=== PATIENT | male | born 1940 | race Caucasian/White ===

== ENCOUNTER 2019-02-16 21:03 | Inpatient (IN) ==
--- NOTE | 2019-02-16 21:09 | Emergency Department Note ---
Disposition Clinical Impression: Atrial fibrillation with rapid ventricular response Congestive heart failure Qualifiers: Heart failure type: unspecified Heart failure chronicity: chronic Qualified Code(s): I50.9 - Heart failure, unspecified Disposition: Admitted As Inpatient Condition: Fair Time of Disposition: 23:51 Chest Pain HPI - General Stated Complaint: Chest Pain PATRICIA Time Seen by Provider: 02/16/19 21:06 Source: patient, EMS Mode of arrival: EMS Limitations: no limitations Vital Signs Reviewed: Yes Nursing Notes Reviewed: Yes - History of Present Illness HPI Narrative: 79-year-old gentleman with history of coronary artery disease (with short of breath which he states is chronic), and a twinge of chest pain. He states he was laying down to take a nap onto his right side and felt a pain in his right shoulder and arm that went across his chest and then down his left arm. This occurred approximately 1 hour prior to arrival. He states he does not history coronary disease with stent placement in the past. He loses had a heart attack in the past as well. No history of atrial fibrillation OR arrhythmias. Pt complaint: chest pain Onset (ago): hour(s) (1) Duration: now resolved Severity: none Severity scale (1-10): 0 Pain Radiation: none Improves with: other (Resolved spontaneously) Worsens with: nothing Associated symptoms: Denies: vomiting, diaphoresis, dyspnea, fever, cough - Related Data On Oral Contraceptives: No Home Medications Medication Instructions Recorded Confirmed Atorvastatin Calcium [Lipitor] 80 mg PO DAILY 06/28/16 02/16/19 Budesonide/Formoterol 160/4.5 2 puff IH BID 06/28/16 02/16/19 [Symbicort 160/4.5] Carbidopa/Levodopa 25/100 [Sinemet 1 tab PO DAILY 06/28/16 02/16/19 25/100] Glucosamine Sulfate Dipot Chlr 1,000 mg PO DAILY 06/28/16 02/16/19 [Glucosamine] HYDROcodone/Acet 5/325 mg [[place] 1 tab PO TID 06/28/16 02/16/19 5-325 mg] MOM Conc [MILK OF MAGNESIA conc] 10 ml PO DAILY 06/28/16 02/16/19 Metformin HCl [Glucophage] 1,000 mg PO BID 06/28/16 02/16/19 Metoprolol [Lopressor] 25 mg PO BID 06/28/16 02/16/19 Nortriptyline HCl 150 mg PO HS 06/28/16 02/16/19 Sertraline [Zoloft] 150 mg PO DAILY 06/28/16 02/16/19 diazePAM [Valium] 5 mg PO BID 06/28/16 02/16/19 Albuterol Sulfate [Proventil 2 puff IH Q6H PRN 08/05/18 02/16/19 Inhaler] Furosemide [Lasix] 20 mg PO DAILY 08/05/18 02/16/19 GlipiZIDE [Glucotrol] 5 mg PO DAILY 08/05/18 02/16/19 Levothyroxine Sodium [Euthyrox] 100 mcg PO DAILY 08/05/18 02/16/19 Nitroglycerin [Nitrostat] 0.4 mg SL Q5M PRN 08/05/18 02/16/19 Omeprazole [PriLOSEC] 40 mg PO DAILY 08/05/18 02/16/19 Tamsulosin [Flomax] 0.4 mg PO DAILY 08/05/18 02/16/19 Clopidogrel [Plavix] 75 mg DAILY 08/27/18 02/16/19 Midodrine HCl 2.5 mg TID 08/27/18 02/16/19 Symbicort 160/4.5 4.5 mcg IN BID 08/27/18 02/16/19 Oxygen 2 l IN CONT 02/16/19 02/16/19 risperiDONE [Risperdal] 2 mg PO BID 02/16/19 02/16/19 Allergies Allergy/AdvReac Type Severity Reaction Status Date / Time red dye Allergy Rash Verified 02/16/19 23:12 iodine AdvReac Rash Verified 02/16/19 23:12 NSAIDS (Non-Steroidal AdvReac See Verified 02/16/19 23:12 Anti-Inflamma Comments rofecoxib [From Vioxx] AdvReac See Verified 02/16/19 23:12 Comments rosuvastatin [From Crestor] AdvReac See Verified 02/16/19 23:12 Comments tramadol AdvReac Fainting Verified 02/16/19 23:12 All systems ED: reviewed and negative except as stated. Constitutional: Denies: fever, chills, weakness, weight change Eyes: Denies: eye pain, eye discharge, vision change ENT ED: Denies: ear pain, throat pain, dental pain, hearing loss, epistaxis, congestion, dysphagia Cardiovascular: Reports: chest pain, palpitations. Denies: dyspnea on exertion, edema, syncope Respiratory: Reports: dyspnea (Chronic, history of previous smoker, but states he has had shortness breath almost all his life). Denies: cough, wheezes, hemoptysis, stridor Gastrointestinal: Denies: abdominal pain, nausea, vomiting, diarrhea, constipation, hematemesis, melena, hematochezia Genitourinary: Denies: urgency, dysuria, frequency, hematuria Musculoskeletal: Denies: back pain, neck pain, arthralgia, myalgia Integumentary: Denies: rash, abrasion, lesions Neurological: Denies: headache, weakness, numbness, paresthesias, confusion, abnormal gait, vertigo Psychiatric: Denies: anxiety, depression, suicidal thoughts, homicidal thoughts, auditory hallucinations, visual hallucinations Endocrine: Denies: fatigue, heat or cold intolerance, polydipsia Hematological/Lymphatic: Denies: easy bleeding, easy bruising, lymphadenopathy Chest Pain PMH - Past Medical History Medical history: Reports: arthritis, COPD, coronary artery disease, diabetes, hypertension, thyroid disease, other Surgical history: Reports: knee replacement, vasectomy Psychiatric history: Reports: anxiety, depression, schizophrenia Prior Cardiac Testing/Procedures: Stenting (2014), Cardiac Angiogram, CTA Chest/CTA Coronary Angiography - Social History Smoking Status: Former smoker Alcohol use: Reports: none Drug use: Reports: none Physical Exam - General Limitations: no limitations General appearance: alert, in no apparent distress - Head Head exam: atraumatic, normocephalic, normal inspection - ENT ENT exam: normal exam, normal oropharynx, mucous membranes moist - Neck Neck exam: Present: normal inspection, full ROM, trachea midline. Absent: tenderness - Chest Chest inspection: Present: normal inspection, symmetric chest wall rise - Respiratory Respiratory exam: Present: normal lung sounds bilaterally. Absent: respiratory distress - Cardiovascular Cardiovascular exam: Present: regular rate, normal rhythm, normal heart sounds. Absent: bradycardia - Abdominal Exam Abdominal exam: Present: soft, Non-Tender, normal bowel sounds. Absent: tenderness, distention, guarding, rebound, rigidity - Extremities Exam Extremities exam: Present: normal inspection, full ROM, normal capillary refill, pedal edema (2+). Absent: tenderness - Back Exam Back exam: Present: normal inspection, full ROM. Absent: tenderness, CVA ten derness (R), CVA tenderness (L) - Neurological Exam Neurological exam: Present: alert, oriented X3, CN II-XII intact - Psychiatric Psychiatric exam: Present: normal affect, normal mood - Skin Skin exam: Present: warm, intact, normal color, other (Skin is clammy, he states his skin always feels this way and his confirms this.) Course Course Narrative: Patient was placed in examination room. History and physical was obtained. Recent lab work including EKG was obtained. Chest x-ray did demonstrate fluid in the fissure supposition flow and findings consistent with congestive heart failure. Lasix was given IV push. EKG demonstrated atrial fibrillation. Cardizem 15 mg IV was given. His heart rate did improve into the 80s and 90s but still was in atrial fibrillation. Cardizem drip at 5 mg per hour was initiated. Patient denies any chest pain, palpitations or shortness of breath now. He states the chest pain only lasted less than a minute when he was on his right side in bed and was in his right arm across his chest and down his left arm but he stated it seemed to be when he laid down. Furthermore, he states he did have palpitations and felt like his heart was racing which consistent with atrial fibrillation. Initially, I said immediately have had a history of atrial fibrillation but after asking the second time they state he has not Dr. Wood will admit the patient as an observation. - Reevaluation(s) Reevaluation #1: Patient is resting comfortably. Time: 00:25 Vital Signs Temperature 98.3 F 02/16/19 21:03 Pulse Rate 114 02/16/19 21:03 Respiratory Rate 20 02/16/19 21:03 Blood Pressure 126/111 02/16/19 21:03 O2 Sat by Pulse Oximetry 97 02/16/19 21:03 Temperature 98.3 F 02/16/19 21:03 Pulse Rate 90 02/17/19 01:30 Respiratory Rate 20 02/17/19 01:30 Blood Pressure 128/105 02/17/19 01:30 O2 Sat by Pulse Oximetry 93 02/17/19 01:30 Oxygen Delivery Oxygen Delivery Nasal Cannula Chest Pain - Medical Records Medical records reviewed: Yes I reviewed the patient's medical records. - Lab Data Lab results reviewed: Yes I reviewed the patient's lab results. Result diagrams: 02/16/19 23:09 02/16/19 23:09 Lab Results 02/16/19 02/16/19 02/16/19 Range/Units 23:09 23:09 23:09 WBC 6.8 (4.3-11.1) K/mcL RBC 4.53 (4.19-5.50) M/mcL Hgb 11.4 L (12.9-16.9) g/dL Hct 38.3 (37.5-50.1) % MCV 84.5 (83.0-100.0) fL MCH 25.2 L (28.0-33.3) pg MCHC 29.8 L (31.6-35.5) g/dL RDW 15.5 H (11.5-14.5) % Plt Count 203 (140-400) K/mcL MPV 9.1 L (9.4-12.4) fL Immature Gran % 0.6 (0-4) % Seg Neutrophils % 77.0 % Lymphocytes % 13.4 % Monocytes % 6.8 % Eosinophils % 1.8 % Basophils % 0.4 % Neutrophils # 5.2 (1.6-8.9) K/mcL Lymphocytes # 0.9 (0.6-4.6) K/mcL Monocytes # 0.5 (0.0-1.3) K/mcL Eosinophils # 0.1 (0.0-0.6) K/mcL Basophils # 0.0 (0.0-0.2) K/mcL PT 13.0 H (9.4-12.1) Seconds INR 1.1 APTT 39.4 H (26.0-36.0) Seconds Sodium 136 (136-145) mEq/L Potassium 4.0 (3.5-5.1) mEq/L Chloride 99 (98-107) mEq/L Carbon Dioxide 28 (23-29) mEq/L BUN 11 (8-23) mg/dL Creatinine 0.70 (0.70-1.30) mg/dL Est GFR ( Amer) > 60 (> 60) Est GFR (Non-Af Amer) > 60 (> 60) BUN/Creatinine Ratio 16 (6-26) Glucose 122 H (70-105) mg/dL Calculated Osmolality 283 (280-300) Calcium 9.5 (8.6-10.3) mg/dL Total Bilirubin (0.3-1.0) mg/dL Direct Bilirubin (0.0-0.2) mg/dL Indirect Bilirubin (0.0-1.2) mg/dL AST (13-39) Units/L ALT (7-52) Units/L Alkaline Phosphatase (34-104) Units/L Troponin I < 0.03 (< 0.04) ng/mL B-Natriuretic Peptide (Less than 100) pg/mL Serum Total Protein (6.4-8.9) g/dL Albumin (3.5-5.7) g/dL Globulin (2.4-3.5) g/dL Albumin/Globulin Ratio (1.1-2.2) 02/16/19 02/16/19 Range/Units 23:09 23:09 WBC (4.3-11.1) K/mcL RBC (4.19-5.50) M/mcL Hgb (12.9-16.9) g/dL Hct (37.5-50.1) % MCV (83.0-100.0) fL MCH (28.0-33.3) pg MCHC (31.6-35.5) g/dL RDW (11.5-14.5) % Plt Count (140-400) K/mcL MPV (9.4-12.4) fL Immature Gran % (0-4) % Seg Neutrophils % % Lymphocytes % % Monocytes % % Eosinophils % % Basophils % % Neutrophils # (1.6-8.9) K/mcL Lymphocytes # (0.6-4.6) K/mcL Monocytes # (0.0-1.3) K/mcL Eosinophils # (0.0-0.6) K/mcL Basophils # (0.0-0.2) K/mcL PT (9.4-12.1) Seconds INR APTT (26.0-36.0) Seconds Sodium (136-145) mEq/L Potassium (3.5-5.1) mEq/L Chloride (98-107) mEq/L Carbon Dioxide (23-29) mEq/L BUN (8-23) mg/dL Creatinine (0.70-1.30) mg/dL Est GFR ( Amer) (> 60) Est GFR (Non-Af Amer) (> 60) BUN/Creatinine Ratio (6-26) Glucose (70-105) mg/dL Calculated Osmolality (280-300) Calcium (8.6-10.3) mg/dL Total Bilirubin 0.4 (0.3-1.0) mg/dL Direct Bilirubin 0.1 (0.0-0.2) mg/dL Indirect Bilirubin 0.3 (0.0-1.2) mg/dL AST 11 L (13-39) Units/L ALT 6 L (7-52) Units/L Alkaline Phosphatase 63 (34-104) Units/L Troponin I (< 0.04) ng/mL B-Natriuretic Peptide 267 H (Less than 100) pg/mL Serum Total Protein 7.4 (6.4-8.9) g/dL Albumin 3.8 (3.5-5.7) g/dL Globulin 3.6 H (2.4-3.5) g/dL Albumin/Globulin Ratio 1.1 (1.1-2.2) - Radiology Data Radiology results reviewed: Yes I reviewed the patient's radiology results. - EKG Data EKG attestation: Yes I reviewed and interpreted this EKG. EKG results narrative: EKG shows an rate of 110 atrial fibrillation irregular regular, left axis deviation, no acute ST elevations, however, there are minimal ST changes in V2 and V3 which compared to previous EKGs is similar. H a fibrillation appears to be new onset after reviewing previous EKGs and medical history. Heart Score - Score History: Slightly Suspicious EKG: Normal Age: Greater than 65 Risk Factors: Equal/Greater than 3 risk factor or history of atherosclerotic disease Troponin: Less than normal limit HEART Score Total: 4 Critical Care Time Critical Care Time: Yes Total Critical Care Time: 30 Attestation: The high probability of a clinically significant, sudden or life threatening deterioration of the patient's condition required my full and direct attention, intervention and personal management.
[2019-02-16 23:26] LABS: Basophils % 0.4 %; Eosinophils # 0.1 K/mcL (0.0-0.6); Eosinophils % 1.8 %; Hematocrit 38.3 % (37.5-50.1); Hemoglobin 11.4 g/dL (12.9-16.9); Immature Granulocytes % 0.6 % (0-4); Lymphocytes # 0.9 K/mcL (0.6-4.6); Lymphocytes % 13.4 %; Mean Corpuscular HGB Conc 29.8 g/dL (31.6-35.5); Mean Corpuscular Hemoglobin 25.2 pg (28.0-33.3); Mean Corpuscular Volume 84.5 fL (83.0-100.0); Mean Platelet Volume 9.1 fL (9.4-12.4); Monocytes # 0.5 K/mcL (0.0-1.3); Monocytes % 6.8 %; Neutrophils # 5.2 K/mcL (1.6-8.9); Platelet Count 203 K/mcL (140-400); Red Blood Count 4.53 M/mcL (4.19-5.50); Red Cell Distribution Width 15.5 % (11.5-14.5); White Blood Count 6.8 K/mcL (4.3-11.1)
[2019-02-16 23:34] LABS: INR 1.1
[2019-02-16 23:37] LABS: Activated Partial Thrombo Time 39.4 Seconds (26.0-36.0)
[2019-02-16 23:45] LABS: Albumin 3.8 g/dL (3.5-5.7); Albumin/Globulin Ratio 1.1 (1.1-2.2); Bilirubin,Direct 0.1 mg/dL (0.0-0.2); Bilirubin,Indirect 0.3 mg/dL (0.0-1.2); Bilirubin,Total 0.4 mg/dL (0.3-1.0); Globulin 3.6 g/dL (2.4-3.5); Total Protein 7.4 g/dL (6.4-8.9)
[2019-02-16 23:47] LABS: BUN/Creatinine Ratio 16 (6-26); Blood Urea Nitrogen 11 mg/dL (8-23); Calcium 9.5 mg/dL (8.6-10.3); Carbon Dioxide 28 mEq/L (23-29); Chloride 99 mEq/L (98-107); Glucose 122 mg/dL (70-105); Osmolality,Calculated 283 (280-300); Sodium 136 mEq/L (136-145); eGFR For African Americans > 60 (> 60); eGFR For Non-African Americans > 60 (> 60)
[2019-02-16 23:49] LABS: Troponin I < 0.03 ng/mL (< 0.04)
[2019-02-16] MEDS ORDERED: Furosemide 40 MG/4 ML VIAL IVP ONE (23:50)
[2019-02-17] MEDS ORDERED: Naloxone 0.4 MG/ML INJ IVP PRN (04:47)
[2019-02-17] MEDS ORDERED: Dextrose Gel 15 GM/37.5 ML TUBE PO PRN ×2 (04:56)
[2019-02-17] MEDS ORDERED: D5% in Water 1,000 ML IVC PRN (04:56)
[2019-02-17] MEDS ORDERED: *HR* Dextrose 50 % in Water (Syg) 50 ML SYRINGE IVP PRN (04:56)
[2019-02-17] MEDS ORDERED: *HR* Heparin 5,000 UNIT/ML VIAL IVP ONE (04:57)
[2019-02-17] MEDS ORDERED: *HR* Heparin 5,000 UNIT/ML VIAL IVP PRN ×2 (04:57)
[2019-02-17 05:12] LABS: Hematocrit 37.4 % (37.5-50.1); Hemoglobin 11.3 g/dL (12.9-16.9); Mean Corpuscular HGB Conc 30.2 g/dL (31.6-35.5); Mean Corpuscular Hemoglobin 25.3 pg (28.0-33.3); Mean Corpuscular Volume 83.7 fL (83.0-100.0); Platelet Count 217 K/mcL (140-400); Red Blood Count 4.47 M/mcL (4.19-5.50); Red Cell Distribution Width 15.5 % (11.5-14.5)
[2019-02-17 05:46] LABS: BUN/Creatinine Ratio 14 (6-26); Blood Urea Nitrogen 11 mg/dL (8-23); Calcium 9.4 mg/dL (8.6-10.3); Carbon Dioxide 33 mEq/L (23-29); Chloride 98 mEq/L (98-107); Glucose 124 mg/dL (70-105); Osmolality,Calculated 291 (280-300); Potassium 3.5 mEq/L (3.5-5.1); Sodium 140 mEq/L (136-145); eGFR For African Americans > 60 (> 60); eGFR For Non-African Americans > 60 (> 60)
[2019-02-17 06:48] LABS: Heparin anti-factor XA UFH 0.59 IU/mL (0.30-0.70); INR 1.2; Prothrombin Time 13.7 Seconds (9.4-12.1)
[2019-02-17] MEDS: Heparin 25,000 UNIT/250 ML D5W 25,000 UNIT/250 ML IV.SOLN IVC SCH ×2 (06:51→20:00)
--- NOTE | 2019-02-17 07:18 | Internal Med History&Physical ---
Date of Encounter: 02/17/19 Time of Encounter: 04:24 Internal Medicine - H&P: HPI Chief complaint: New-onset atrial fibrillation Admitted From: Emergency Dept Plans for Post Hospital Care: Home History of present illness: Mr. Davis is a 79 year old male Patient presented to the emergency department with brief chest pain that he experienced when he rolled over in bed. He had been laying down on his right side when he turned to lay down on his left side when he experienced a pain in his right arm that spread across his chest and then went into his left arm. The episode was brief, but he was concerned that he may be having a heart attack. 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 He also was experiencing palpitations as well which is not normal for him. He called an ambulance and came to the hospital for further evaluation. Emergency department vital signs: Initial heart rate 114, blood pressure 126/111, respiratory rate 20, oxygen 97% on 2 L. CBC: White count 6.8, hemoglobin 11.4, platelets 203. BMP unremarkable Liver function tests Unremarkable Initial troponin undetectable BNP 267 Chest x-ray showed marked cardiomegaly with suggestive findings of volume overload EKG: Atrial fibrillation, heart rate 110, QTC 458 ms, ST changes in V2 and V3, similar to previous EKG from 08/04/18. In the ER patient was started on a cardizem drip, given 40mg of lasix and admitted to the hospital for further observation. Upon my evaluation, the patient was resting comfortably in the hospital bed in no acute distress. He denies chest pain, abdominal pain, nausea, vomiting, diarrhea and constipation. He also denied shortness of breath. Patient is a full code. He denies history of irregular heart rhythm. Past Med Surg Social Fam HX - Past Medical History Medical history: arthritis, COPD, coronary artery disease, diabetes, hy pertension, thyroid disease, other Additional medical history: hiatal hernia, tremors, cardiac stents 2013 Psychiatric history: anxiety, depression, schizophrenia - Past Surgical History Surgical History: knee replacement, vasectomy Additional surgical history: heart stents; shoulder, back and feet surgery - Social History Smoking Status: Former smoker Smokeless Tobacco Status: No Alcohol use: none Drug use: none - Family History Sister Hx Family Cardiac Disorders: Yes (heart disease) Father Hx Family Cardiac Disorders: Yes (heart disease, [place]) Internal Medicine - H&P: Meds Atorvastatin Calcium [Lipitor] 80 mg PO DAILY 06/28/16 [History] Budesonide/Formoterol 160/4.5 [Symbicort 160/4.5] 2 puff IH BID 06/28/16 [History] Carbidopa/Levodopa 25/100 [Sinemet 25/100] 1 tab PO DAILY 06/28/16 [History] Glucosamine Sulfate Dipot Chlr [Glucosamine] 500 mg PO DAILY 06/28/16 [History] HYDROcodone/Acet 5/325 mg [[place] 5-325 mg] 1 tab PO TID 06/28/16 [History] MOM Conc [MILK OF MAGNESIA conc] 10 ml PO DAILY 06/28/16 [History] Metformin HCl [Glucophage] 1,000 mg PO BID 06/28/16 [History] Metoprolol [Lopressor] 25 mg PO BID 06/28/16 [History] Nortriptyline HCl 150 mg PO HS 06/28/16 [History] Sertraline [Zoloft] 150 mg PO DAILY 06/28/16 [History] diazePAM [Valium] 5 mg PO BID 06/28/16 [History] Albuterol Sulfate [Proventil Inhaler] 2 puff IH Q6H PRN 08/05/18 [History] Furosemide [Lasix] 20 mg PO DAILY 08/05/18 [History] GlipiZIDE [Glucotrol] 5 mg PO DAILY 08/05/18 [History] Levothyroxine Sodium [Euthyrox] 100 mcg PO DAILY 08/05/18 [History] Nitroglycerin [Nitrostat] 0.4 mg SL Q5M PRN 08/05/18 [History] Omeprazole [PriLOSEC] 40 mg PO DAILY 08/05/18 [History] Tamsulosin [Flomax] 0.4 mg PO DAILY 08/05/18 [History] Clopidogrel [Plavix] 75 mg DAILY 08/27/18 [History] Midodrine HCl 2.5 mg TID 08/27/18 [History] Symbicort 160/4.5 4.5 mcg IN BID 08/27/18 [History] Oxygen 2 l IN CONT 02/16/19 [History] risperiDONE [Risperdal] 2 mg PO BID 02/16/19 [History] Cholecalciferol (D-3) [Vitamin D] 1,000 unit PO DAILY 02/17/19 [History] Droxidopa [Northera] 100 mg PO TID 02/17/19 [History] Sertraline 100 mg PO BID 02/17/19 [History] Allergy/AdvReac Type Severity Reaction Status Date / Time red dye Allergy Rash Verified 02/16/19 23:12 iodine AdvReac Rash Verified 02/16/19 23:12 NSAIDS (Non-Steroidal AdvReac See Verified 02/16/19 23:12 Anti-Inflamma Comments rofecoxib [From Vioxx] AdvReac See Verified 02/16/19 23:12 Comments rosuvastatin [From Crestor] AdvReac See Verified 02/16/19 23:12 Comments tramadol AdvReac Fainting Verified 02/16/19 23:12 All Systems PM: A 10-system review of systems was performed and is negative for pertinent find ings except as documented above in the HPI. - Constitutional Vitals: Temp Pulse Resp BP Pulse Ox 98.3 F 116 22 127/106 94 02/16/19 21:03 02/17/19 03:18 02/17/19 03:18 02/17/19 03:18 02/17/19 03:18 General appearance: Present: cooperative, A&O X 3, pleasant, no acute distress, answers questions appropriately Exam: - - Head Head exam: Present: normal inspection - Eye Eye exam: Present: EOMI, normal appearance - Respiratory Respiratory exam: Present: CTAB. Absent: rales, respiratory distress, rhonchi, wheezes - Cardiovascular Cardiovascular exam: Present: irregular rhythm, tachycardia. Absent: diastolic murmur, systolic murmur - GI/Abdominal GI/Abdominal exam: Present: normal bowel sounds, soft. Absent: tenderness - Extremities Exam Extremities exam: Present: warm, radial pulses palpable and symmetrical. Absent: calf tenderness, pedal edema, tenderness - Neurological Exam Neurological exam: Present: no focal deficits, strengths equal and symetr throughout. Absent: motor sensory deficit, facial droop, speech deficit - Skin Skin exam: Present: dry, normal color, warm Internal Med - H&P Results - Labs CBC & Chem 7: 02/17/19 04:58 02/17/19 04:58 Labs: Short CBC 02/16/19 02/17/19 Range/Units 23:09 04:58 WBC 6.8 6.0 (4.3-11.1) K/mcL Hgb 11.4 L 11.3 L (12.9-16.9) g/dL Hct 38.3 37.4 L (37.5-50.1) % Plt Count 203 217 (140-400) K/mcL Neutrophils # 5.2 (1.6-8.9) K/mcL BMP 02/16/19 02/17/19 23:09 04:58 Sodium 136 140 Potassium 4.0 3.5 Chloride 99 98 Carbon Dioxide 28 33 H BUN 11 11 Creatinine 0.70 0.77 Glucose 122 H 124 H Calcium 9.5 9.4 Cardiac Enzymes 02/16/19 02/17/19 Range/Units 23:09 04:58 Troponin I < 0.03 0.03 (< 0.04) ng/mL Liver Function 02/16/19 Range/Units 23:09 Total Bilirubin 0.4 (0.3-1.0) mg/dL Direct Bilirubin 0.1 (0.0-0.2) mg/dL AST 11 L (13-39) Units/L ALT 6 L (7-52) Units/L Alkaline Phosphatase 63 (34-104) Units/L Albumin 3.8 (3.5-5.7) g/dL - Impressions ITS Impressions Chest X-Ray 02/16/19 22:02 IMPRESSION: Marked cardiomegaly with findings suggestive of volume overload. D/ / Talib Wheatley / Talib Wheatley Interpreting Provider: Talib Wheatley - Assessment and Plan (1) Atrial fibrillation with rapid ventricular response Current Visit: Yes Status: Acute Assessment and plan: No previous history, rate improved on Cardizem drip to around mid 90's. Reported rate of 140 for EMS. Cardiac telemetry Start heparin drip for CHADs vasc score of 6 Cardiology consultation Continue to monitor. Echocardiogram today (2) Congestive heart failure Current Visit: Yes Status: Acute Assessment and plan: Patient's chest x-ray showed some volume overload, mild swelling in lower extremities. No crackles on exam. Echocardiogram today Strict I's and O's Daily weights Continue lasix Qualifiers: Heart failure type: unspecified Heart failure chronicity: chronic Qualified Code(s): I50.9 - Heart failure, unspecified (3) Chest pain Current Visit: No Status: Acute Assessment and plan: Brief episode while patient was repositioning in bed, radiated to both arms. No chest pain since. EKG showed atrial fibrillation but no new ST changes. Cardiac telemetry Continue to trend troponin Echocardiogram in the morning Cardiology consultation Qualifiers: Chest pain type: unspecified Qualified Code(s): R07.9 - Chest pain, unspecified (4) Diabetes mellitus Current Visit: No Status: Chronic Assessment and plan: Patient is not an insulin dependent diabetic Monitor sugars Q6H NPO Low dose insulin sliding scale as needed Hold home meds. Qualifiers: Diabetes mellitus type: type 2 Diabetes mellitus senior care insulin use: without termite control service representative use Diabetes mellitus complication status: with hyperglycemia Qualified Code(s): E11.65 - Type 2 diabetes mellitus with hyperglycemia (5) DVT prophylaxis Current Visit: No Status: Acute Assessment and plan: Continue heparin drip - Time Spent With Patient Total time spent is greater than 50% in coordination of care (as documented) at patient's floor/unit and/or counseling patient: Greater than 35 minutes
[2019-02-17] MEDS ORDERED: SYMBICORT IN SCH (09:00)
[2019-02-17] MEDS ORDERED: risperiDONE 1 MG TABLET PO SCH (09:00)
[2019-02-17] MEDS ORDERED: DROXIDOPA 100 MG PO SCH (09:00)
[2019-02-17] MEDS: diazePAM 5 MG TABLET PO SCH ×2 (10:06→20:55)
[2019-02-17] MEDS: Furosemide 40 MG/4 ML VIAL IVP SCH (10:06)
[2019-02-17] MEDS: Insulin LISPRO 300 UNITS/3 ML VIAL SQ SCH ×3 (10:07→16:43)
--- NOTE | 2019-02-17 11:19 | Electrocardiograph Report ---
[place] [id number] Test Date: 2019-02-16 Pat Name: Jason Davis Department: [id number] Room: 2N5 Gender: Bracer: : 1940 Requested By: [id number] Order Number: [id number] Reading MD: Terence Sanchez Measurements Intervals [place] Rate: 119 P: [place]: QRS: -10 QRSD: 103 T: 117 QT: 354 QTc: 499 Interpretive Statements Atrial fibrillation Anterior infarct, old Nonspecific T abnormalities, lateral leads Electronically Signed On 02-17-2019 11:18:21 EDT by Terence Sanchez
[2019-02-17] MEDS: Budesonide/Formoterol 160/4.5 1 PUFF INH IH SCH ×2 (11:31→19:51)
--- NOTE | 2019-02-17 11:51 | Cardiology Consult Note ---
<Huey Carlos - Last Filed: 02/17/19 14:02> Date of Encounter: 02/17/19 Time of Encounter: 10:30 Assessment and Plan (1) Atrial fibrillation with rapid ventricular response Current Visit: Yes Status: Acute 1. A-fib on EKG; currently A-fib on telemetry. 2. Echo 02/17/19 LVEF 55-60%.. Mild concentric left ventricular hypertrophy. Indeterminate diastolic function. Normal right ventricular structure and function. Mild aortic regurgitation. Mild mitral regurgitation. Unable to estimate RVSP due to lack of TR jet. Mild ascending aorta dilation. NSWMA. 3. 24-hour ave HR 110 on telemetry; on cardizem gtt, continue to titrate up to 20 mg/hr for rate control. 4. On heparin gtt until further recs 5. Will order TSH. 6. Added diet and will make NPO after midnight. 7. Discussed and reviewed with Dr. Pizarro, patient and spouse. WIll need f/u as outpatient. (2) Chest pain Current Visit: Yes Status: Acute 1. One episode of atypical chest pain while moving in bed that coincides with new palpitations and onset A-fib. 2. Troponins negative x 2. 3. Abnormal stress test 08/04 with small sized, reversible stress perfusion defect involving the basal-mid inferior wall representing mild ischemia. Pharmacologic stress ECG is negative for ischemia at level of heart rate achieved. No appreciable change from baseline ECG. Gated EF = 66%. 4; with atypical chest pain. Would favor medical management. If episodes chest pain continue will consider further recs. Currently chest pain free. Qualifiers: Chest pain type: unspecified Qualified Code(s): R07.9 - Chest pain, unspecified (3) HTN (hypertension) Current Visit: Yes Status: Chronic 1. Elevated BP readings trending up this admission; will add home dose metopro lol 25 mg BID. 2. Chest x-ray marked cardiomegaly with findings suggestive of volume overload; bilateral 1 + pitting edema on exam. 3. On Lasix daily, Continue. Qualifiers: Hypertension type: essential hypertension Qualified Code(s): I10 - Essential (primary) hypertension Discussion w patient/family: The assessment and plan as outlined above was discussed with the patient and/or family members who expressed understanding and agreement. All questions were answered. Thank you for involving us in the care of your patient. Please call with any questions. History of Present Illness Consult date: 02/17/19 Consult reason: a-fib Chief complaint: chest pain History of present illness: Mr. Davis is a 79 year old male with PMH of COPD, CAD, DM, HTN, Cardiac stents x 2 (2013). Presented with brief episode of constant, sharp chest pain radiating across anterior chest for approximately 1 minute while at rest. Admits to radiation to left arm; dizziness, palpitations, and SOB, with mild diaphoresis. Denies alleviating, aggravating factors. Currently chest pain free. Previous abnormal stress test in July with small size, mild intensity resting perfusion defect involving the basal inferior wall. Past Med Surg Social Fam HX - Past Medical History Attestation: Yes The following information was validated with the patient. Source: patient, old records reviewed, obtained from family Medical history: arthritis, COPD, coronary artery disease, diabetes, hypertension, thyroid disease, other Additional medical history: hiatal hernia, tremors, cardiac stents 2013 Psychiatric history: anxiety, depression, schizophrenia - Past Surgical History Surgical History: knee replacement, vasectomy Additional surgical history: heart stents; shoulder, back and feet surgery - Social History Smoking Status: Former smoker Smokeless Tobacco Status: No Alcohol use: none Drug use: none - Family History Sister Hx Family Cardiac Disorders: Yes (heart disease) Father Hx Family Cardiac Disorders: Yes (heart disease, [place]) Medications and Allergies Atorvastatin Calcium [Lipitor] 80 mg PO DAILY 06/28/16 [History] Budesonide/Formoterol 160/4.5 [Symbicort 160/4.5] 2 puff IH BID 06/28/16 [History] Carbidopa/Levodopa 25/100 [Sinemet 25/100] 1 tab PO TID 06/28/16 [History] Glucosamine Sulfate Dipot Chlr [Glucosamine] 500 mg PO DAILY 06/28/16 [History] HYDROcodone/Acet 5/325 mg [Racine 5-325 mg] 1 tab PO TID PRN 06/28/16 [History] Metformin HCl [Glucophage] 1,000 mg PO BID 06/28/16 [History] Metoprolol [Lopressor] 25 mg PO BID 06/28/16 [History] Nortriptyline HCl 150 mg PO HS 06/28/16 [History] Sertraline [Zoloft] 150 mg PO DAILY 06/28/16 [History] diazePAM [Valium] 5 mg PO BID 06/28/16 [History] Albuterol Sulfate [Proventil Inhaler] 2 puff IH Q6H PRN 08/05/18 [History] Furosemide [Lasix] 20 mg PO DAILY PRN 08/05/18 [History] GlipiZIDE [Glucotrol] 5 mg PO DAILY 08/05/18 [History] Levothyroxine Sodium [Euthyrox] 100 mcg PO QAM 08/05/18 [History] Nitroglycerin [Nitrostat] 0.4 mg SL Q5M PRN 08/05/18 [History] Omeprazole [PriLOSEC] 40 mg PO DAILY 08/05/18 [History] Tamsulosin [Flomax] 0.4 mg PO DAILY 08/05/18 [History] Clopidogrel [Plavix] 75 mg DAILY 08/27/18 [History] Midodrine HCl 2.5 mg TID 08/27/18 [History] risperiDONE [Risperdal] 1 mg PO BID 02/16/19 [History] Cholecalciferol (D-3) [Vitamin D] 1,000 unit PO DAILY 02/17/19 [History] Allergy/AdvReac Type Severity Reaction Status Date / Time red dye Allergy Rash Verified 02/16/19 23:12 iodine AdvReac Rash Verified 02/16/19 23:12 NSAIDS (Non-Steroidal AdvReac See Verified 02/16/19 23:12 Anti-Inflamma Comments rofecoxib [From Vioxx] AdvReac See Verified 02/16/19 23:12 Comments rosuvastatin [From Crestor] AdvReac See Verified 02/16/19 23:12 Comments tramadol AdvReac Fainting Verified 02/16/19 23:12 All Systems Review: The remainder of the systems were reviewed and are negative - Cardiovascular Cardiovascular: as per HPI Physical Examination Vital Signs, Last 4 Hours Temp Pulse Resp BP Pulse Ox 02/17/19 11:32 18 95 02/17/19 11:22 98.3 F 105 17 176/116 94 02/17/19 09:14 160/100 General: Conversant, No Apparent Distress HEENT: Atraumatic, Normocephaly, Mucus Membranes Moist Neck: No JVD, Normal carotid pulses Cardiac: Other (irregularly irregular) Lungs: Normal Breath Sounds, No Wheeze, Rales, Rhonchi Neuro: Alert and responsive, No focal deficits noted Abdomen: Soft, Non-Tender Skin: No rashes noted on visualized skin Musculoskeletal: No Chest Wall Tenderness Extremities: Other (1+ pitting edema bilat lower legs) Results 02/17/19 04:58 02/17/19 04:58 Lab Results Laboratory Tests 02/16/19 02/17/19 02/17/19 23:09 04:58 04:58 Hgb 11.3 L Hct 37.4 L Plt Count 217 Heparin Anti-Xa, Unfract Potassium 3.5 BUN 11 Creatinine 0.77 Est GFR (Non-Af Amer) > 60 Calculated Osmolality 291 B-Natriuretic Peptide 267 H 02/17/19 06:27 Hgb Hct Plt Count Heparin Anti-Xa, Unfract 0.59 Potassium BUN Creatinine Est GFR (Non-Af Amer) Calculated Osmolality B-Natriuretic Peptide Laboratory Tests 02/16/19 02/17/19 23:09 04:58 Troponin I < 0.03 0.03 Impressions Selected Entries 02/16/19 21:03 02/16/19 22:58 02/16/19 23:12 Blood Pressure 126/111 135/109 118/84 02/17/19 00:32 02/17/19 01:30 02/17/19 03:18 Blood Pressure 130/96 128/105 127/106 02/17/19 07:03 02/17/19 09:14 02/17/19 11:22 Blood Pressure 172/102 160/100 176/116 Chest X-Ray 02/16/19 22:02 IMPRESSION: Marked cardiomegaly with findings suggestive of volume overload. D/ / Talib Wheatley / Talib Wheatley Interpreting Provider: Talib Wheatley Echocardiogram 02/17/19 07:18 Impressions: LVEF 55-60%. Mild concentric left ventricular hypertrophy. Indeterminate diastolic function. Normal right ventricular structure and function. Mild aortic regurgitation. Mild mitral regurgitation. Unable to estimate RVSP due to lack of TR jet. Mild ascending aorta dilation. Left Ventricular Wall Motion: Rest Echo Findings All wall segments showed normal motion. Active Medications Hydrocodone Bitart/Acetaminophen (Racine 5-325 Mg) 1 tab PO TID PRN PRN Reason: Pain Stop: 08/19/19 10:55 Hydrocodone Bitart/Acetaminophen (Racine 5-325 Mg) 1 tab PO TID [facility] Stop: 08/19/19 15:01 Atorvastatin Calcium (Lipitor) 80 mg PO DAILY [facility] Stop: 08/19/19 09:01 Last Admin: 02/17/19 10:06 Dose: 80 mg Documented by: Budesonide/Formoterol Fumarate (Symbicort) 2 puff IH BID [facility]; Protocol Stop: 08/19/19 09:01 Last Admin: 02/17/19 11:31 Dose: 2 puff Documented by: Carbidopa/Levodopa (Sinemet) 1 each PO DAILY [facility] Stop: 08/19/19 09:01 Dextrose/Water (Dextrose 50% (Syg)) 25 ml IVP AD PRN PRN Reason: Hypoglycemia Stop: 08/19/19 04:57 Diazepam (Valium) 5 mg PO BID [facility] Stop: 08/19/19 09:01 Last Admin: 02/17/19 10:06 Dose: 5 mg Documented by: Furosemide (Lasix) 40 mg IVP DAILY [facility] Stop: 08/19/19 09:01 Last Admin: 02/17/19 10:06 Dose: 40 mg Documented by: Glucagon (Glucagen) 1 mg IM ONCE PRN PRN Reason: Hypoglycemia Stop: 08/19/19 04:57 Glucose (Gluctose) 15 gm PO ONCE PRN PRN Reason: Hypoglycemia Stop: 08/19/19 04:57 Glucose (Gluctose) 30 gm PO ONCE PRN PRN Reason: Hypoglycemia Stop: 08/19/19 04:57 Heparin Sodium (Porcine) (Heparin) 9,000 unit IVP Q6HR PRN PRN Reason: SEE COMMENTS Stop: 08/19/19 04:58 Heparin Sodium (Porcine) (Heparin) 4,500 unit IVP Q6H PRN PRN Reason: SEE COMMENTS Stop: 08/19/19 04:58 Hydralazine HCl (Hydralazine) 10 mg IVP Q6HR PRN PRN Reason: Hypertension Stop: 08/19/19 07:03 Last Admin: 02/17/19 07:41 Dose: 10 mg Documented by: Diltiazem HCl 50 mg/ Sodium (Chloride) 50 mls @ 5 mls/hr IVC .Q10H [facility] Stop: 08/19/19 00:31 Last Infusion: 02/17/19 11:56 Dose: 12.5 mg/hr, 12.5 mls/hr Documented by: Dextrose (Dextrose 5%) 1,000 mls @ 100 mls/hr IVC .Q10H PRN PRN Reason: HYPOGLYCEMIA Stop: 08/19/19 04:57 Heparin Sodium/Dextrose (Heparin 25,000 Unit/250 Ml D5w) 25,000 unit in 250 mls @ 18.62 mls/hr IVC .[id number] [facility]; Protocol Stop: 08/19/19 05:01 Last Admin: 02/17/19 06:51 Dose: 14 unit/kg/hr, 18.6 mls/hr Documented by: Insulin Human Lispro (Humalog) 0 units SQ Q6HR [facility]; Protocol Stop: 08/19/19 06:01 Last Admin: 02/17/19 10:07 Dose: Not Given Documented by: Levothyroxine Sodium (Synthroid) 100 mcg PO 0630 [facility] Stop: 08/20/19 06:31 Naloxone HCl (Narcan) 0.4 mg IVP Q2MPRN PRN PRN Reason: SEE COMMENTS Stop: 08/19/19 04:48 Non-Formulary Medication (Nortriptyline Hcl) 150 mg PO HS [facility] Stop: 08/19/19 21:01 Omeprazole (Prilosec) 40 mg PO DAILY@0730 [facility]; Protocol Stop: 08/20/19 07:31 Pharmacy Profile Note (Patient Taking Own Medication) 1 each PO TID [facility] Stop: 08/19/19 09:01 Last Admin: 02/17/19 10:07 Dose: Not Given Documented by: Risperidone (Risperdal) 2 mg PO BID [facility] Stop: 08/19/19 09:01 Last Admin: 02/17/19 10:06 Dose: 2 mg Documented by: Sertraline HCl (Zoloft) 150 mg PO DAILY [facility] Stop: 08/20/19 09:01 Tamsulosin HCl (Flomax) 0.4 mg PO DAILY [facility]; Protocol Stop: 08/19/19 09:01 Last Admin: 02/17/19 10:06 Dose: 0.4 mg Documented by: Vitamin D (Vitamin D) 1,000 unit PO DAILY [facility] Stop: 08/20/19 09:01 - Imaging and Cardiology Chest Xray: report reviewed Stress Test: report reviewed Echo: report reviewed - EKG Interpretation EKG results cardiology: other (A-fib. non-specific T wave abnormalities) Consult Discharge Plan - Plan Referrals: Marie Camarena DO [Primary Care Provider] - <Ramón Pizarro - Last Filed: 02/17/19 14:51> Date of Encounter: 02/17/19 - Attending Attestation I have personally performed a face to face evaluation on this patient. I have reviewed and agree with the care plan. History and Exam by me shows: 79-year-old male presents to [facility] department with atypical type chest pain. Patient describes discomfort in his right upper extremity radiating to his back, left shoulder, left upper extremity and arm lasting a second or 2 and resolve spontaneously. This occurred while changing position in bed and is nonexertional with no associated symptoms. Patient did have a mild abnormality on a previous stress test however currently denies any exertional symptoms. He has significantly elevated blood pressure and poorly controlled A. fib with RVR at this time. I do recommend titration of medications and optimizing both his heart rate and blood pressure. If patient continues to have atypical type symptoms despite better control of his pressure and heart rate I do recommend an aggressive ischemic workup possibly even a [facility]. This can be performed as an outpatient if his symptoms continue. Assessment and Plan Discussion w patient/family: The assessment and plan as outlined above was discussed with the patient and/or family members who expressed understanding and agreement. All questions were answered. Thank you for involving us in the care of your patient. Please call with any questions. History of Present Illness History of present illness: Mr. Davis is a 79 year old male All Systems Review: The remainder of the systems were reviewed and are negative Physical Examination Vital Signs, Last 4 Hours Temp Pulse Resp BP Pulse Ox 02/17/19 11:32 18 95 02/17/19 11:22 98.3 F 105 17 176/116 94 Results 02/17/19 04:58 02/17/19 04:58 Lab Results 02/16/19 02/16/19 02/16/19 23:09 23:09 23:09 WBC 6.8 Hgb 11.4 L Hct 38.3 Plt Count 203 INR 1.1 APTT 39.4 H Sodium 136 Potassium 4.0 Chloride 99 Carbon Dioxide 28 BUN 11 Creatinine 0.70 Glucose 122 H Calcium 9.5 Total Bilirubin AST ALT Alkaline Phosphatase Troponin I < 0.03 B-Natriuretic Peptide [facility] 02/16/19 02/16/19 02/17/19 23:09 23:09 04:58 WBC 6.0 Hgb 11.3 L Hct 37.4 L Plt Count 217 INR APTT Sodium Potassium Chloride Carbon Dioxide BUN Creatinine Glucose Calcium Total Bilirubin 0.4 AST 11 L ALT 6 L Alkaline Phosphatase 63 Troponin I B-Natriuretic Peptide 267 H [facility] 02/17/19 02/17/19 02/17/19 04:58 04:58 06:27 WBC Hgb Hct Plt Count INR 1.2 APTT Sodium 140 Potassium 3.5 Chloride 98 Carbon Dioxide 33 H BUN 11 Creatinine 0.77 Glucose 124 H Calcium 9.4 Total Bilirubin AST ALT Alkaline Phosphatase Troponin I 0.03 B-Natriuretic Peptide [facility] 02/17/19 12:42 WBC Hgb Hct Plt Count INR APTT Sodium Potassium Chloride Carbon Dioxide BUN Creatinine Glucose Calcium Total Bilirubin AST ALT Alkaline Phosphatase Troponin I < 0.03 B-Natriuretic Peptide TSH 4.386
[2019-02-17 13:16] LABS: Troponin I < 0.03 ng/mL (< 0.04)
[2019-02-17 13:29] LABS: Thyroid Stimulating Hormone 4.386 mcIU/mL (0.340-5.600)
--- NOTE | 2019-02-17 13:46 | Event Note ---
Date of Encounter: 02/17/19 Time of Encounter: 10:00 79-year-old male with history of CAD status post PCI in 2013, COPD, who came into the hospital due to chest pain and patient was found to have new onset atrial fibrillation with RVR. His symptoms were managed as following: A. fib with RVR: Currently on heparin drip. Pending echo, troponin was negative 3. On Cardizem drip and cardiology is consulted. Started on Lopressor 25 mg twice a day. Check TSH tomorrow. We will do pricing for anticoagulation is on cardiology evaluation. CAD status post PCI: On aspirin and Lipitor were continued. Decompensated heart failure presented ejection fraction: Likely from palpitation and A. fib. Continue Lasix 40 mg IV daily. Monitor input and output. History of mood disorder: Continue home medication Hypothyroidism: Continue levothyroxine
[2019-02-17] MEDS: *HR* HYDROcodone/Acet 5/325 mg TABLET PO PRN (14:05)
[2019-02-17] MEDS ORDERED: *HR* HYDROcodone/Acet 5/325 mg TABLET PO SCH (15:00)
[2019-02-17] MEDS: Carbidopa/Levodopa 25/100 TABLET PO SCH ×2 (16:43→20:55)
[2019-02-17] MEDS: NORTRIPTYLINE HCL 150 MG PO SCH (20:55)
[2019-02-17] MEDS: risperiDONE 1 MG TABLET PO SCH (20:55)
[2019-02-18 02:01] LABS: Hematocrit 38.2 % (37.5-50.1); Hemoglobin 11.4 g/dL (12.9-16.9); Mean Corpuscular HGB Conc 29.8 g/dL (31.6-35.5); Mean Corpuscular Hemoglobin 25.3 pg (28.0-33.3); Mean Corpuscular Volume 84.7 fL (83.0-100.0); Platelet Count 210 K/mcL (140-400); Red Blood Count 4.51 M/mcL (4.19-5.50); Red Cell Distribution Width 15.7 % (11.5-14.5); White Blood Count 7.1 K/mcL (4.3-11.1)
[2019-02-18 02:18] LABS: BUN/Creatinine Ratio 18 (6-26); Blood Urea Nitrogen 15 mg/dL (8-23); Calcium 9.1 mg/dL (8.6-10.3); Carbon Dioxide 34 mEq/L (23-29); Chloride 94 mEq/L (98-107); Glucose 183 mg/dL (70-105); Osmolality,Calculated 288 (280-300); Potassium 3.4 mEq/L (3.5-5.1); Sodium 136 mEq/L (136-145); eGFR For African Americans > 60 (> 60); eGFR For Non-African Americans > 60 (> 60)
[2019-02-18] MEDS: Insulin LISPRO 300 UNITS/3 ML VIAL SQ SCH ×3 (05:08→11:32)
[2019-02-18] MEDS: risperiDONE 1 MG TABLET PO SCH ×2 (07:29→21:54)
[2019-02-18] MEDS: Cholecalciferol (D-3) 1,000 UNIT (25MCG) TABLET PO SCH (07:29)
[2019-02-18] MEDS: Carbidopa/Levodopa 25/100 TABLET PO SCH ×3 (07:29→21:54)
[2019-02-18] MEDS ORDERED: Potassium Chloride Elixir 20 MEQ/15 ML UDC PO ONE (07:29)
[2019-02-18] MEDS: diazePAM 5 MG TABLET PO SCH ×2 (07:29→21:54)
[2019-02-18] MEDS: Furosemide 40 MG/4 ML VIAL IVP SCH (07:30)
[2019-02-18] MEDS: Budesonide/Formoterol 160/4.5 1 PUFF INH IH SCH ×2 (07:30→20:31)
[2019-02-18] MEDS ORDERED: MethylPREDNISolone 40 MG/ML VIAL IVP ONE (07:37)
[2019-02-18] MEDS ORDERED: Isovue-370 500 ML BOTTLE IVP ONE (07:38)
[2019-02-18] MEDS: *HR* HYDROcodone/Acet 5/325 mg TABLET PO PRN (07:39)
[2019-02-18] MEDS: Heparin 25,000 UNIT/250 ML D5W 25,000 UNIT/250 ML IV.SOLN IVC SCH (09:31)
--- NOTE | 2019-02-18 11:17 | Cardiology Progress Note ---
<Huey Carlos - Last Filed: 02/18/19 12:12> Date of Encounter: 02/18/19 Time of Encounter: 10:30 Assessment and Plan (1) Atrial fibrillation with rapid ventricular response Current Visit: Yes Status: Acute 1. Currently A-fib on telemetry. Ave 24 hr HR 100. Will continue to titrate cardizem gtt down. Will increase BB and continue. 2. CHADS-VASc = 6. Xarelto mckeon check started for chcf anticoagulation. Remain on heparin gtt. 3. TSH WNLs. 4. Willl change diet to cardio/DM diet. 5. Discussed and reviewed with Dr. Pizarro, patient and spouse. Once BP and HR controlled with sign off and f/u as outpatient. (2) Chest pain Current Visit: Yes Status: Acute 1. Previous abnormal stress test 08/04 with small sized, reversible stress perfusion defect involving the basal-mid inferior wall representing mild ischemia. Pharmacologic stress ECG is negative for ischemia at level of heart rate achieved. No appreciable change from baseline ECG. Gated EF = 66%. 4; with atypical chest pain. Would favor medical management. 2. Troponins negative x 3. 3. One episode of atypical chest pain while moving in bed that coincides with new palpitations and onset A-fib. Denies any further chest pain. States that he "feels better this a.m." Discussed with Dr. Pizarro and will f/u as out patient. Qualifiers: Chest pain type: unspecified Qualified Code(s): R07.9 - Chest pain, unspecified (3) HTN (hypertension) Current Visit: Yes Status: Chronic 1. Elevated BP readings trending down with medical management; home dose metoprolol 25 mg BID added yesterday, continue. 2. Chest x-ray marked cardiomegaly with findings suggestive of volume overload; bilateral 1 + pitting edema on exam. 3. On Lasix daily, Continue. Qualifiers: Hypertension type: essential hypertension Qualified Code(s): I10 - Essential (primary) hypertension Discussion w patient/family: The assessment and plan as outlined above was discussed with the patient and/or family members who expressed understanding and agreement. All questions were answered. Thank you for involving us in the care of your patient. Please call with any questions. Subjective Principal diagnosis: NEw onset A-fib Interval history: Denies chest pain, increased SOB, diaphoresis. States "feels better this a.m." Objective Vital Signs, Last 4 Hours Temp Pulse Resp BP Pulse Ox 02/18/19 07:32 98.2 F 95 18 151/104 94 02/18/19 07:31 18 97 General: Conversant, No Apparent Distress HEENT: Atraumatic, Normocephaly, Mucus Membranes Moist Cardiac: Other (remains A-fib) Lungs: Normal Breath Sounds, No Wheeze, Rales, Rhonchi Neuro: Alert and responsive, No focal deficits noted Abdomen: Soft, Non-Tender Skin: No rashes noted on visualized skin Musculoskeletal: No Chest Wall Tenderness Extremities: Other (1+ pitting edema bilat lower legs. ) Results 02/18/19 01:46 02/18/19 01:46 Lab Results Laboratory Tests 02/16/19 02/18/19 02/18/19 23:09 01:46 01:46 Hgb 11.4 L Hct 38.2 Potassium 3.4 L BUN 15 Creatinine 0.83 Est GFR (Non-Af Amer) > 60 Calculated Osmolality 288 B-Natriuretic Peptide 267 H Laboratory Tests 02/16/19 02/17/19 02/17/19 23:09 04:58 12:42 Troponin I < 0.03 0.03 < 0.03 ITS Impressions Chest X-Ray 02/16/19 22:02 IMPRESSION: Marked cardiomegaly with findings suggestive of volume overload. D/ / Talib Wheatley / Talib Wheatley Interpreting Provider: Talib Wheatley Echocardiogram 02/17/19 07:18 Impressions: LVEF 55-60%. Mild concentric left ventricular hypertrophy. Indeterminate diastolic function. Normal right ventricular structure and function. Mild aortic regurgitation. Mild mitral regurgitation. Unable to estimate RVSP due to lack of TR jet. Mild ascending aorta dilation. Left Ventricular Wall Motion: Rest Echo Findings All wall segments showed normal motion. Findings: Study Quality * Technically sub-optimal due to poor echocardiographic windows. ECG Findings * Atrial fibrillation, BBB. Left Ventricle * LVEF 55-60%. * Normal LV chamber size and systolic function. * Mild concentric left ventricular hypertrophy. * Indeterminate diastolic function. * Atypical septal motion consistent with bundle branch block. Right Ventricle * Normal right ventricular structure and function. Left Atrium * Normal left atrial size. Right Atrium * Normal right atrial size. Interatrial Septum * Interatrial septum not well evaluated. Aortic Valve * Trileaflet aortic valve. * Mild aortic regurgitation. * No aortic stenosis. Mitral Valve * Normal mitral valve structure. * No mitral stenosis. * Mild mitral regurgitation. Tricuspid Valve * Normal tricuspid valve structure. * No tricuspid stenosis. * Trace tricuspid regurgitation. * Unable to estimate RVSP due to lack of TR jet. Pulmonic Valve * Pulmonic valve is not well visualized. * No pulmonic stenosis. * No pulmonic regurgitation. Aorta * Mild ascending aorta dilation 3.7 cm. Pericardium * The pericardium appears normal. IVC * The IVC is not well evaluated. - Imaging and Cardiology Chest Xray: report reviewed Echo: report reviewed - EKG Interpretation EKG results cardiology: other (A-fib) Consult Discharge Plan - Plan Referrals: Marie Camarena DO [Primary Care Provider] - Prescriptions: Rivaroxaban [Xarelto] 20 mg PO DAILY #30 tablet CHADS2-VASC Score - Score Age: Greater than or equal to 75 Sex: Male CHF History: Yes Hypertension history: Yes Vascular disease history: Yes Diabetes history: Yes Score: 6 <Ramón Pizarro - Last Filed: 02/18/19 13:41> Date of Encounter: 02/18/19 Assessment and Plan (1) Atrial fibrillation with rapid ventricular response Current Visit: Yes Status: Acute 1. Currently A-fib on telemetry. Ave 24 hr HR 100. Will continue to titrate cardizem gtt down. Will increase BB and continue. 2. CHADS-VASc = 6. Xarelto mckeon check started for chcf anticoagulation. Remain on heparin gtt. 3. TSH WNLs. 4. Willl change diet to cardio/DM diet. 5. Discussed and reviewed with Dr. Pizarro, patient and spouse. Once BP and HR controlled with sign off and f/u as outpatient. I have personally performed a face to face evaluation on this patient. I have reviewed and agree with the care plan. History and Exam by me shows: 79-year-old male presents with chest pain atypical his previous mild inferior reversible ischemia found to have new onset atrial fibrillation currently rate controlled on Cardizem drip. We will start anticoagulation due to high risk for CVA. Continue titrate medications to control both blood pressure and heart rate as tolerated. If after optimization of medications and patient's hemodynamics are well-controlled and continues to be symptomatic consider [facility] as an outpatient. Discussion w patient/family: The assessment and plan as outlined above was discussed with the patient and/or family members who expressed understanding and agreement. All questions were answered. Thank you for involving us in the care of your patient. Please call with any questions. Objective Vital Signs, Last 4 Hours Pulse Resp BP Pulse Ox 02/18/19 11:19 101 18 122/89 91 Results 02/18/19 01:46 02/18/19 01:46 Lab Results 02/18/19 02/18/19 01:46 01:46 WBC 7.1 Hgb 11.4 L Hct 38.2 Plt Count 210 Sodium 136 Potassium 3.4 L Chloride 94 L Carbon Dioxide 34 H BUN 15 Creatinine 0.83 Glucose 183 H Calcium 9.1 Magnesium 2.0
[2019-02-18] MEDS ORDERED: Furosemide 20 MG TABLET PO PRN (13:06)
--- NOTE | 2019-02-18 13:22 | Internal Med Progress Note ---
Hospitalist Progress Note - Encounter Date of Encounter: 02/18/19 Time of Encounter: 10:25 - Subjective Interval History: No major events overnight. Patient was seen this a.m. He denied fever, chills or night sweats. He has no nausea, vomiting or abdominal pain. Patient denied chest pain, shortness of breath or palpitation. - Exam Vitals: Temp Pulse Resp BP Pulse Ox 98.2 F 101 18 122/89 91 02/18/19 07:32 02/18/19 11:19 02/18/19 11:19 02/18/19 11:19 02/18/19 11:19 Exam: General: Patient is alert, oriented 3. Head: Atraumatic, normal inspection, normocephalic. Eye: EOMI, PERRLA. ENT: Mucous membranes moist. Neck: Normal inspection. Respiratory: No respiratory distress, rhonchi, or wheezes noted. Cardiovascular: Regular rate and irregular rhythm,. GI: Soft, nondistended, normal bowel sounds. Extremities:No joint swelling, pedal edema, or tenderness noted. Neurological: Alert, oriented 3, no focal deficits. Psychiatric: normal affect, normal mood. Skin: Dry, intact, warm. Normal color. No rashes. - Assessment and Plan (1) Atrial fibrillation with rapid ventricular response Current Visit: Yes Status: Acute (2) Chest pain Current Visit: Yes Status: Resolved (3) Diabetes mellitus Current Visit: Yes Status: Chronic (4) DVT prophylaxis Current Visit: No Status: Acute (5) Congestive heart failure Current Visit: Yes Status: Acute - Summary of Assessment and Plan Summary of Assessment and Plan: 79-year-old male with history of CAD status post PCI in 2013, COPD, who came into the hospital due to chest pain and patient was found to have new onset atrial fibrillation with RVR. His symptoms were managed as following: A. fib with RVR: Currently on heparin drip. Echo with EF 5560 percent, mild AR, mild MR. troponin was negative 3. Titrate down Cardizem drip and increase BB dose as percardiology. Plans for Stress test as outpatient. stop heparin gtt and start on Xarelto. CAD status post PCI: On aspirin/plavix and Lipitor were continued. Decompensated heart failure presented ejection fraction: Likely from palpitation and A. fib. Switch to home dose Lasix, creatinine is stable. Monitor input and output. History of mood disorder: Continue home medication Hypothyroidism: Continue levothyroxine. Thyroid nodule: Incidental finding, will require outpatient thyroid US Lung nodule: Incidental finding, will require follow-up CT scan in 6-12 months DVT ppx: xarelto - Time Spent with Patient Total time spent is greater than 50% in coordination of care (as documented) at patient's floor/unit and/or counseling patient: Internal Medicine: Result - Labs CBC & Chem 7: 02/18/19 01:46 02/18/19 01:46 Labs: Short CBC 02/18/19 Range/Units 01:46 WBC 7.1 (4.3-11.1) K/mcL Hgb 11.4 L (12.9-16.9) g/dL Hct 38.2 (37.5-50.1) % Plt Count 210 (140-400) K/mcL BMP 02/18/19 01:46 Sodium 136 Potassium 3.4 L Chloride 94 L Carbon Dioxide 34 H BUN 15 Creatinine 0.83 Glucose 183 H Calcium 9.1 Cardiac Enzymes 02/17/19 Range/Units 12:42 Troponin I < 0.03 (< 0.04) ng/mL - ABG Interpretation ABG results: PT/INR, D-dimer PT 13.7 Seconds (9.4-12.1) H 02/17/19 06:27 - Impressions Impressions CT Dissection 02/18/19 10:00 IMPRESSION: 1. No acute findings in the chest, abdomen, or pelvis. Specifically, no acute vascular findings such as aortic dissection or pulmonary embolism. 2. Moderate coronary atherosclerosis with suspected stent grafting. 3. Findings suggestive of pulmonary hypertension. 4. 4.8 cm x 4.9 cm fusiform ectasia of the ascending thoracic aorta without involvement of the aortic root. 5. Small right pleural effusion with underlying passive atelectasis in the right lung. There is also suggestion of nodular consolidative opacity in the right lower lobe obscured by the atelectasis, potentially rounded atelectasis, pneumonia, or neoplasm. Recommend follow-up chest CT with contrast in 6-12 weeks. 6. Suspected 3.3 cm right thyroid nodule. Recommend further evaluation with sonography on a nonemergent basis. RECOMMENDATIONS: Recommend thyroid US. Reference: J Am Marcelo Radiol. 2015 Jul;12(2): 143-50. D/ / Rian Aguilar MD / Rian Aguilar MD Interpreting Provider: Rian Aguilar MD Consult Discharge Plan - Plan Referrals: Marie Camarena DO [Primary Care Provider] - Prescriptions: Rivaroxaban [Xarelto] 20 mg PO DAILY #30 tablet (2) Chest pain Qualifiers: Chest pain type: unspecified Qualified Code(s): R07.9 - Chest pain, unspecified (3) Diabetes mellitus Qualifiers: Diabetes mellitus type: type 2 Diabetes mellitus truck terminal manager insulin use: without truck terminal manager use Diabetes mellitus complication status: with hyperglycemia Qualified Code(s): E11.65 - Type 2 diabetes mellitus with hyperglycemia (5) Congestive heart failure Qualifiers: Heart failure type: diastolic Heart failure chronicity: chronic Qualified Code(s): I50.32 - Chronic diastolic (congestive) heart failure
[2019-02-18] MEDS ORDERED: Insulin LISPRO 300 UNITS/3 ML VIAL SQ SCH ×2 (16:30→21:00)
[2019-02-18] MEDS: *HR* Rivaroxaban 10 MG TABLET PO SCH (16:54)
[2019-02-18] MEDS: NORTRIPTYLINE HCL 150 MG PO SCH (21:55)
[2019-02-18] MEDS: Insulin DETEMIR 100 UNIT/ML X5UNITS SQ SCH (22:31)
[2019-02-19 05:41] LABS: Hematocrit 38.9 % (37.5-50.1); Hemoglobin 11.5 g/dL (12.9-16.9); Mean Corpuscular HGB Conc 29.6 g/dL (31.6-35.5); Mean Corpuscular Hemoglobin 25.3 pg (28.0-33.3); Mean Corpuscular Volume 85.5 fL (83.0-100.0); Mean Platelet Volume 9.2 fL (9.4-12.4); Platelet Count 222 K/mcL (140-400); Red Blood Count 4.55 M/mcL (4.19-5.50); Red Cell Distribution Width 15.5 % (11.5-14.5); White Blood Count 7.2 K/mcL (4.3-11.1)
[2019-02-19] MEDS: Budesonide/Formoterol 160/4.5 1 PUFF INH IH SCH ×2 (07:32→20:33)
[2019-02-19] MEDS: Insulin LISPRO 300 UNITS/3 ML VIAL SQ SCH ×3 (08:41→15:53)
[2019-02-19] MEDS: risperiDONE 1 MG TABLET PO SCH ×2 (08:42→21:48)
[2019-02-19] MEDS: diazePAM 5 MG TABLET PO SCH ×2 (08:42→21:49)
[2019-02-19] MEDS: Cholecalciferol (D-3) 1,000 UNIT (25MCG) TABLET PO SCH (08:42)
[2019-02-19] MEDS: Carbidopa/Levodopa 25/100 TABLET PO SCH ×3 (08:42→21:48)
--- NOTE | 2019-02-19 10:38 | Cardiology Progress Note ---
<Huey Carlos - Last Filed: 02/19/19 10:59> Date of Encounter: 02/19/19 Time of Encounter: 10:00 Assessment and Plan (1) Atrial fibrillation with rapid ventricular response Current Visit: Yes Status: Acute 1. Currently rate controlled A-fib on telemetry; currently HR 80-100s; Ave 12 hr HR 97. Off cardizem gtt. Will increase metoprolol from 50mg to 75mg BID to further optimize HR control. SBPs 130s. Continue to titrate or add PO CCB as needed. 2. CHADS-VASc = 6. heparin gtt stopped, xarelto started anticoagulation. 3. Discussed and reviewed with Dr. Pizarro, patient and spouse. 4. Will sign off and f/u as outpatient. Re-consult as needed. (2) Chest pain Current Visit: Yes Status: Resolved 1. Previous abnormal stress test 08/04 with small sized, reversible stress perfusion defect involving the basal-mid inferior wall representing mild ischemia. Pharmacologic stress ECG is negative for ischemia at level of heart rate achieved. No appreciable change from baseline ECG. Gated EF = 66%. 4; with atypical chest pain. Would favor medical management. 2. Troponins negative x 3. 3. One episode of atypical chest pain while moving in bed that coincides with new palpitations and onset A-fib. Denies any further chest pain. States that he "feels better this a.m." Discussed with Dr. Pizarro and will f/u as out patient. Qualifiers: Chest pain type: unspecified Qualified Code(s): R07.9 - Chest pain, unspecified (3) HTN (hypertension) Current Visit: Yes Status: Chronic 1. Elevated BP readings trending down with medical management. 2. Home dose metoprolol increased, continue. Currently SBP 130s. Qualifiers: Hypertension type: essential hypertension Qualified Code(s): I10 - Essential (primary) hypertension Discussion w patient/family: The assessment and plan as outlined above was discussed with the patient and/or family members who expressed understanding and agreement. All questions were answered. Thank you for involving us in the care of your patient. Please call with any questions. Subjective Principal diagnosis: NEw onset A-fib Interval history: Denies chest pain, increased SOB, diaphoresis. States "cotinues to feels better this a.m." Objective Vital Signs, Last 4 Hours Temp Pulse Resp BP Pulse Ox 02/19/19 07:32 18 94 02/19/19 07:20 98.1 F 92 16 131/94 92 General: Conversant, No Apparent Distress HEENT: Atraumatic, Normocephaly, Mucus Membranes Moist Neck: No JVD, Normal carotid pulses Cardiac: Reg Rate and Rhythm, Normal S1 and S2, No Murmur Lungs: Normal Breath Sounds, No Wheeze, Rales, Rhonchi Neuro: Alert and responsive, No focal deficits noted Abdomen: Soft, Non-Tender Skin: No rashes noted on visualized skin Musculoskeletal: No Chest Wall Tenderness Extremities: No Clubbing, No Cyanosis, No Edema, Normal Pulses Results 02/19/19 05:03 02/18/19 01:46 Lab Results Laboratory Tests 02/18/19 02/19/19 01:46 05:03 Hgb 11.5 L Hct 38.9 Potassium 3.4 L BUN 15 Creatinine 0.83 Laboratory Tests 02/16/19 02/17/19 02/17/19 23:09 04:58 12:42 Troponin I < 0.03 0.03 < 0.03 Impressions ITS Impressions Chest X-Ray 02/16/19 22:02 IMPRESSION: Marked cardiomegaly with findings suggestive of volume overload. D/ / Talib Wheatley / Talib Wheatley Interpreting Provider: Talib Wheatley Echocardiogram 02/17/19 07:18 Impressions: LVEF 55-60%. Mild concentric left ventricular hypertrophy. Indeterminate diastolic function. Normal right ventricular structure and function. Mild aortic regurgitation. Mild mitral regurgitation. Unable to estimate RVSP due to lack of TR jet. Mild ascending aorta dilation. Left Ventricular Wall Motion: Rest Echo Findings All wall segments showed normal motion. Active Medications Hydrocodone Bitart/Acetaminophen (Preston 5-325 Mg) 1 tab PO TID PRN PRN Reason: Pain Stop: 08/19/19 10:55 Last Admin: 02/18/19 07:39 Dose: 1 tab Documented by: Atorvastatin Calcium (Lipitor) 80 mg PO DAILY SENIA Stop: 08/19/19 09:01 Last Admin: 02/19/19 08:43 Dose: 80 mg Documented by: Budesonide/Formoterol Fumarate (Symbicort) 2 puff IH BID [facility]; Protocol Stop: 08/19/19 09:01 Last Admin: 02/19/19 07:32 Dose: 2 puff Documented by: Carbidopa/Levodopa (Sinemet) 1 each PO TID [facility] Stop: 08/19/19 15:01 Last Admin: 02/19/19 08:42 Dose: 1 each Documented by: Dextrose/Water (Dextrose 50% (Syg)) 25 ml IVP AD PRN PRN Reason: Hypoglycemia Stop: 08/19/19 04:57 Diazepam (Valium) 5 mg PO BID [facility] Stop: 08/19/19 09:01 Last Admin: 02/19/19 08:42 Dose: 5 mg Documented by: Furosemide (Lasix) 20 mg PO DAILY PRN PRN Reason: Edema Stop: 08/20/19 13:07 Glucagon (Glucagen) 1 mg IM ONCE PRN PRN Reason: Hypoglycemia Stop: 08/19/19 04:57 Glucose (Gluctose) 15 gm PO ONCE PRN PRN Reason: Hypoglycemia Stop: 08/19/19 04:57 Glucose (Gluctose) 30 gm PO ONCE PRN PRN Reason: Hypoglycemia Stop: 08/19/19 04:57 Hydralazine HCl (Hydralazine) 10 mg IVP Q6HR PRN PRN Reason: Hypertension Stop: 08/19/19 07:03 Last Admin: 02/17/19 07:41 Dose: 10 mg Documented by: Dextrose (Dextrose 5%) 1,000 mls @ 100 mls/hr IVC .Q10H PRN PRN Reason: HYPOGLYCEMIA Stop: 08/19/19 04:57 Insulin Detemir (Levemir) 10 unit SQ HS [facility] Stop: 08/20/19 21:01 Last Admin: 02/18/19 22:31 Dose: 10 unit Documented by: Insulin Human Lispro (Humalog) 0 units SQ TIDAC [facility]; Protocol Stop: 08/21/19 07:31 Last Admin: 02/19/19 08:41 Dose: Not Given Documented by: Levothyroxine Sodium (Synthroid) 100 mcg PO 0630 [facility] Stop: 08/20/19 06:31 Last Admin: 02/19/19 05:20 Dose: 100 mcg Documented by: Metoprolol Tartrate (Lopressor) 75 mg PO BID [facility] Stop: 08/21/19 21:01 Naloxone HCl (Narcan) 0.4 mg IVP Q2MPRN PRN PRN Reason: SEE COMMENTS Stop: 08/19/19 04:48 Omeprazole (Prilosec) 40 mg PO DAILY@0730 [facility]; Protocol Stop: 08/20/19 07:31 Last Admin: 02/19/19 08:42 Dose: 40 mg Documented by: Pharmacy Profile Note (Patient Taking Own Medication) 1 each PO HS [facility] Stop: 08/19/19 21:01 Last Admin: 02/18/19 21:55 Dose: Not Given Documented by: Risperidone (Risperdal) 1 mg PO BID [facility] Stop: 08/19/19 21:01 Last Admin: 02/19/19 08:42 Dose: 1 mg Documented by: Rivaroxaban (Xarelto) 20 mg PO 1700 [facility] Stop: 08/20/19 17:01 Last Admin: 02/18/19 16:54 Dose: 20 mg Documented by: Sertraline HCl (Zoloft) 150 mg PO DAILY [facility] Stop: 08/20/19 09:01 Last Admin: 02/19/19 08:42 Dose: 150 mg Documented by: Tamsulosin HCl (Flomax) 0.4 mg PO DAILY [facility]; Protocol Stop: 08/19/19 09:01 Last Admin: 02/19/19 08:42 Dose: 0.4 mg Documented by: Vitamin D (Vitamin D) 1,000 unit PO DAILY [facility] Stop: 08/20/19 09:01 Last Admin: 02/19/19 08:42 Dose: 1,000 unit Documented by: CT Dissection 02/18/19 10:00 IMPRESSION: 1. No acute findings in the chest, abdomen, or pelvis. Specifically, no acute vascular findings such as aortic dissection or pulmonary embolism. 2. Moderate coronary atherosclerosis with suspected stent grafting. 3. Findings suggestive of pulmonary hypertension. 4. 4.8 cm x 4.9 cm fusiform ectasia of the ascending thoracic aorta without involvement of the aortic root. 5. Small right pleural effusion with underlying passive atelectasis in the right lung. There is also suggestion of nodular consolidative opacity in the right lower lobe obscured by the atelectasis, potentially rounded atelectasis, pneumonia, or neoplasm. Recommend follow-up chest CT with contrast in 6-12 weeks. 6. Suspected 3.3 cm right thyroid nodule. Recommend further evaluation with sonography on a nonemergent basis. RECOMMENDATIONS: Recommend thyroid US. Reference: J Am Marcelo Radiol. 2015 Jul;12(2): 143-50. D/ / Rian Aguilar MD / Rian Aguilar MD Interpreting Provider: Rian Aguilar MD - Imaging and Cardiology Chest Xray: report reviewed Echo: report reviewed - EKG Interpretation EKG results cardiology: no diagnostic ischemia Consult Discharge Plan - Plan Referrals: Marie Camarena DO [Primary Care Provider] - Prescriptions: Rivaroxaban [Xarelto] 20 mg PO DAILY #30 tablet <Ramón Pizarro - Last Filed: 02/19/19 15:01> Date of Encounter: 02/19/19 Assessment and Plan (1) Atrial fibrillation with rapid ventricular response Current Visit: Yes Status: Acute I have personally performed a face to face evaluation on this patient. I have reviewed and agree with the care plan. History and Exam by me shows: 79-year-old male history of new-onset H fibrillation difficult to control initially however has improved in regards to rate control on higher dose of metoprolol to 75 mg twice daily. Patient started on Xarelto for stroke risk reduction. Initial plans for CHALO/cardioversion however currently rate controlle d will follow-up as outpatient. Recent abnormal stress test however patient denies any chest pain and had very atypical split-second type chest pain when rolling in bed. He denies any exertional shortness of breath above baseline or exertional chest pain. Discussion w patient/family: The assessment and plan as outlined above was discussed with the patient and/or family members who expressed understanding and agreement. All questions were answered. Thank you for involving us in the care of your patient. Please call with any questions. Results 02/19/19 05:03 02/18/19 01:46 Lab Results 02/19/19 05:03 WBC 7.2 Hgb 11.5 L Hct 38.9 Plt Count 222
--- NOTE | 2019-02-19 10:40 | Internal Med Progress Note ---
Hospitalist Progress Note - Encounter Date of Encounter: 02/19/19 Time of Encounter: 09:45 - Subjective Interval History: No major events overnight. Patient was seen this a.m. He denied fever, chills or night sweats. He has no nausea, vomiting or abdominal pain. Patient denied chest pain, shortness of breath or palpitation. - Exam Vitals: Temp Pulse Resp BP Pulse Ox 98.1 F 92 18 131/94 94 02/19/19 07:20 02/19/19 07:20 02/19/19 07:32 02/19/19 07:20 02/19/19 07:32 Exam: General: Patient is alert, oriented 3. Head: Atraumatic, normal inspection, normocephalic. Eye: EOMI, PERRLA. ENT: Mucous membranes moist. Neck: Normal inspection. Respiratory: No respiratory distress, rhonchi, or wheezes noted. Cardiovascular: Regular rate and irregular rhythm,. GI: Soft, nondistended, normal bowel sounds. Extremities:No joint swelling, pedal edema, or tenderness noted. Neurological: Alert, oriented 3, no focal deficits. Psychiatric: normal affect, normal mood. Skin: Dry, intact, warm. Normal color. No rashes. - Assessment and Plan (1) Atrial fibrillation with rapid ventricular response Current Visit: Yes Status: Acute (2) Diabetes mellitus Current Visit: Yes Status: Chronic (3) Congestive heart failure Current Visit: Yes Status: Acute (4) DVT prophylaxis Current Visit: No Status: Acute - Summary of Assessment and Plan Summary of Assessment and Plan: 79-year-old male with history of CAD status post PCI in 2013, COPD, who came into the hospital due to chest pain and patient was found to have new onset atrial fibrillation with RVR. His symptoms were managed as following: A. fib with RVR: Echo with EF 5560 percent, mild AR, mild MR. troponin was ne gative 3. Cardizem drip DCd, continue lopressor 50mg BID. Plans for Stress test as outpatient. On Xarelto. CAD status post PCI: On aspirin/plavix and Lipitor were continued. Acute Decompensated HFpEF: Likely from palpitation and A. fib. Switch to home dose Lasix, creatinine is stable. Monitor input and output. History of mood disorder: Continue home medication Hypokalemia: Was given replacement, Check K and Mag tomorrow. Hypothyroidism: Continue levothyroxine. Thyroid nodule: Incidental finding, will require outpatient thyroid US Lung nodule: Incidental finding, will require follow-up CT scan in 6-12 months DVT ppx: xarelto - Time Spent with Patient Total time spent is greater than 50% in coordination of care (as documented) at patient's floor/unit and/or counseling patient: Plan of Care Discussed with: patient Internal Medicine: Result - Labs CBC & Chem 7: 02/19/19 05:03 02/18/19 01:46 Labs: Short CBC 02/19/19 Range/Units 05:03 WBC 7.2 (4.3-11.1) K/mcL Hgb 11.5 L (12.9-16.9) g/dL Hct 38.9 (37.5-50.1) % Plt Count 222 (140-400) K/mcL - ABG Interpretation ABG results: PT/INR, D-dimer PT 13.7 Seconds (9.4-12.1) H 02/17/19 06:27 - Impressions Impressions CT Dissection 02/18/19 10:00 IMPRESSION: 1. No acute findings in the chest, abdomen, or pelvis. Specifically, no acute vascular findings such as aortic dissection or pulmonary embolism. 2. Moderate coronary atherosclerosis with suspected stent grafting. 3. Findings suggestive of pulmonary hypertension. 4. 4.8 cm x 4.9 cm fusiform ectasia of the ascending thoracic aorta without involvement of the aortic root. 5. Small right pleural effusion with underlying passive atelectasis in the right lung. There is also suggestion of nodular consolidative opacity in the right lower lobe obscured by the atelectasis, potentially rounded atelectasis, pneumonia, or neoplasm. Recommend follow-up chest CT with contrast in 6-12 weeks. 6. Suspected 3.3 cm right thyroid nodule. Recommend further evaluation with sonography on a nonemergent basis. RECOMMENDATIONS: Recommend thyroid US. Reference: J Am Marcelo Radiol. 2015 Jul;12(2): 143-50. D/ / Rian Aguilar MD / Rian Aguilar MD Interpreting Provider: Rian Aguilar MD Consult Discharge Plan - Plan Referrals: Marie Camarena DO [Primary Care Provider] - Prescriptions: Rivaroxaban [Xarelto] 20 mg PO DAILY #30 tablet __ (2) Diabetes mellitus Qualifiers: Diabetes mellitus type: type 2 Diabetes mellitus mcc insulin use: without mcc use Diabetes mellitus complication status: with hyperglycemia Qualified Code(s): E11.65 - Type 2 diabetes mellitus with hyperglycemia (3) Congestive heart failure Qualifiers: Heart failure type: diastolic Heart failure chronicity: chronic Qualified Code(s): I50.32 - Chronic diastolic (congestive) heart failure
[2019-02-19] MEDS: *HR* Rivaroxaban 10 MG TABLET PO SCH (15:52)
[2019-02-19] MEDS: *HR* HYDROcodone/Acet 5/325 mg TABLET PO PRN (21:48)
[2019-02-19] MEDS: Insulin DETEMIR 100 UNIT/ML X5UNITS SQ SCH (21:49)
[2019-02-19] MEDS: NORTRIPTYLINE HCL 150 MG PO SCH (21:49)
[2019-02-20 07:25] LABS: Potassium 3.5 mEq/L (3.5-5.1)
[2019-02-20] MEDS: Budesonide/Formoterol 160/4.5 1 PUFF INH IH SCH (07:54)
[2019-02-20] MEDS: Cholecalciferol (D-3) 1,000 UNIT (25MCG) TABLET PO SCH (08:32)
[2019-02-20] MEDS: diazePAM 5 MG TABLET PO SCH (08:32)
[2019-02-20] MEDS: risperiDONE 1 MG TABLET PO SCH (08:32)
[2019-02-20] MEDS: Carbidopa/Levodopa 25/100 TABLET PO SCH (08:33)
[2019-02-20] MEDS: Insulin LISPRO 300 UNITS/3 ML VIAL SQ SCH ×2 (08:36→13:21)
--- NOTE | 2019-02-20 08:42 | Discharge Summary ---
- NOTES TO OUTPATIENT PROVIDER Notes to Outpatient Provider: Patient was admitted with chest pain and was found to have new onset A. fib with RVR. Cardiology was following and patient was started on xarelto and increasing his Lopressor. He has incidental thyroid nodules that need outpatient ultrasound given his radiation exposure in the past. He was also found to have incidental lung nodule that requires a follow- up CT scan in 612 months. He has to follow with cardiology as outpatient for outpatient stress test. Date of Encounter: 02/20/19 Time of Encounter: 09:00 - Discharge Diagnosis (1) Atrial fibrillation with rapid ventricular response Priority: Primary Status: Acute (2) Diabetes mellitus Priority: Secondary Status: Chronic Qualifiers: Diabetes mellitus type: type 2 Diabetes mellitus emt intermediate insulin use: without emt intermediate use Diabetes mellitus complication status: with hyperglycemia Qualified Code(s): E11.65 - Type 2 diabetes mellitus with hyperglycemia (3) Congestive heart failure Priority: Secondary Status: Resolved Qualifiers: Heart failure type: diastolic Heart failure chronicity: chronic Qualified Code(s): I50.32 - Chronic diastolic (congestive) heart failure (4) DVT prophylaxis Priority: Secondary Status: Resolved Hospital course: 79-year-old male with history of CAD status post PCI in 2013, COPD, who came into the hospital due to chest pain and patient was found to have new onset atrial fibrillation with RVR. Cardiology was consulted and patient was placed initially on Cardizem and heparin drips. His Cardizem has titrated down with increasing his Lopressor dose to 75 mg twice a day and with control of his heart rate. His echo revealed EF 5560 percent, mild AR, mild MR. patient was started on xeralto for AC. He was found to have incidental thyroid nodules that requires outpatient thyroid ultrasound giving his radiation exposure in the past. He also had lung nodule that requires CT scan of the chest in 6-12 month. Today, patient is asymptomatic, hemodynamically stable. He will be discharged home in stable condition on follow-up with cardiology for outpatient stress test. Patient and informed. Discharge discussed with: patient - Time Spent with Patient Total time spent providing and/or coordinating discharge services: 45 minutes - Discharge Medications Prescriptions: New Rivaroxaban [Xarelto] 20 mg PO DAILY #30 tablet Metoprolol [Lopressor] 75 mg PO BID #60 tablet Continued Carbidopa/Levodopa 25/100 [Sinemet 25/100] 1 tab PO TID Nortriptyline HCl 150 mg PO HS Metformin HCl [Glucophage] 1,000 mg PO BID Glucosamine Sulfate Dipot Chlr [Glucosamine] 500 mg PO DAILY Atorvastatin Calcium [Lipitor] 80 mg PO DAILY Sertraline [Zoloft] 150 mg PO DAILY HYDROcodone/Acet 5/325 mg [Sanford 5-325 mg] 1 tab PO TID PRN PRN Reason: Pain Budesonide/Formoterol 160/4.5 [Symbicort 160/4.5] 2 puff IH BID diazePAM [Valium] 5 mg PO BID Furosemide [Lasix] 20 mg PO DAILY PRN PRN Reason: Edema GlipiZIDE [Glucotrol] 5 mg PO DAILY Levothyroxine Sodium [Euthyrox] 100 mcg PO QAM Tamsulosin [Flomax] 0.4 mg PO DAILY Omeprazole [PriLOSEC] 40 mg PO DAILY Nitroglycerin [Nitrostat] 0.4 mg SL Q5M PRN PRN Reason: Chest Pain Albuterol Sulfate [Proventil Inhaler] 2 puff IH Q6H PRN PRN Reason: Shortness Of Breath Clopidogrel [Plavix] 75 mg DAILY risperiDONE [Risperdal] 1 mg PO BID Cholecalciferol (D-3) [Vitamin D] 1,000 unit PO DAILY Discontinued Metoprolol [Lopressor] 25 mg PO BID Midodrine HCl 2.5 mg TID Home Medications: Atorvastatin Calcium [Lipitor] 80 mg PO DAILY 06/28/16 [History] Budesonide/Formoterol 160/4.5 [Symbicort 160/4.5] 2 puff IH BID 06/28/16 [History] Carbidopa/Levodopa 25/100 [Sinemet 25/100] 1 tab PO TID 06/28/16 [History] Glucosamine Sulfate Dipot Chlr [Glucosamine] 500 mg PO DAILY 06/28/16 [History] HYDROcodone/Acet 5/325 mg [Sanford 5-325 mg] 1 tab PO TID PRN 06/28/16 [History] Metformin HCl [Glucophage] 1,000 mg PO BID 06/28/16 [History] Nortriptyline HCl 150 mg PO HS 06/28/16 [History] Sertraline [Zoloft] 150 mg PO DAILY 06/28/16 [History] diazePAM [Valium] 5 mg PO BID 06/28/16 [History] Albuterol Sulfate [Proventil Inhaler] 2 puff IH Q6H PRN 08/05/18 [History] Furosemide [Lasix] 20 mg PO DAILY PRN 08/05/18 [History] GlipiZIDE [Glucotrol] 5 mg PO DAILY 08/05/18 [History] Levothyroxine Sodium [Euthyrox] 100 mcg PO QAM 08/05/18 [History] Nitroglycerin [Nitrostat] 0.4 mg SL Q5M PRN 08/05/18 [History] Omeprazole [PriLOSEC] 40 mg PO DAILY 08/05/18 [History] Tamsulosin [Flomax] 0.4 mg PO DAILY 08/05/18 [History] Clopidogrel [Plavix] 75 mg DAILY 08/27/18 [History] risperiDONE [Risperdal] 1 mg PO BID 02/16/19 [History] Cholecalciferol (D-3) [Vitamin D] 1,000 unit PO DAILY 02/17/19 [History] Rivaroxaban [Xarelto] 20 mg PO DAILY #30 tablet 02/17/19 [Rx] Metoprolol [Lopressor] 75 mg PO BID #60 tablet 02/20/19 [Rx] Allergies/Adverse Reactions: Allergy/AdvReac Type Severity Reaction Status Date / Time red dye Allergy Rash Verified 02/16/19 23:12 iodine AdvReac Rash Verified 02/16/19 23:12 NSAIDS (Non-Steroidal AdvReac See Verified 02/16/19 23:12 Anti-Inflamma Comments rofecoxib [From Vioxx] AdvReac See Verified 02/16/19 23:12 Comments rosuvastatin [From Crestor] AdvReac See Verified 02/16/19 23:12 Comments tramadol AdvReac Fainting Verified 02/16/19 23:12 Date of admission: 02/17/19 14:12 Primary care physician: Wilmer Xavier Consults: 02/17/19 03:02 Consult to Nutrition [CONS] Routine Comment: Consulting Provider: NUTRITION Reason for Dietary Consult: Other Other:: Pt has lost weight without trying but not sure how much Consult to Pastoral Services [CONS] Routine Comment: Consult to Geospatial Developer [CONS] Routine Reason for SW Consult: is caregiver, both agree some home health services are needed. 02/17/19 06:54 Consult to Cardiology [CONS] Routine Comment: Consulting Provider: Lula Barnett Reason for Consult: New-onset atrial fibrillation Call Completed: No - Constitutional Vitals: Temp Pulse Resp BP Pulse Ox 98.2 F 102 18 142/96 96 02/20/19 07:02 02/20/19 07:02 02/20/19 07:54 02/20/19 07:02 02/20/19 07:54 General appearance: Present: cooperative, A&O X 3, pleasant, no acute distress, answers questions appropriately Exam: General: Patient is alert, oriented 3. Head: Atraumatic, normal inspection, normocephalic. Eye: EOMI, PERRLA. ENT: Mucous membranes moist. Neck: Normal inspection. Respiratory: No respiratory distress, rhonchi, or wheezes noted. Cardiovascular: Regular rate and irregular rhythm,. GI: Soft, nondistended, normal bowel sounds. Extremities:No joint swelling, pedal edema, or tenderness noted. Neurological: Alert, oriented 3, no focal deficits. Psychiatric: normal affect, normal mood. Skin: Dry, intact, warm. Normal color. No rashes. - Patient Status Disposition: Home, Self-Care Condition: Good Functional capacity at discharge: wheelchair bound Overall status at discharge: patient is back to baseline - Discharge Instructions Follow Up With: Marie Camarena DO [Primary Care Provider] - (Physician referral made, office will contact the patient to schedule an appointment.) Jael Grey DO [Partnered Physician] - Forms: ED Satisfaction Letter - Diet and Activity Activity: increase activity as tolerated Diet: diabetic diet
[2019-02-20 11:31] VITALS: BP 125/91
== END 2019-02-20 14:20 | disposition home or self-care (01) ==
LOC: 2NENU 21:03 → EMEROOARM 21:03 → SUATTDRO 02-17 00:48 → 2NENU 02-17 02:32
PROVIDERS: ADMIT Family Medicine; ATTEND Internal Medicine

== ENCOUNTER 2019-04-19 16:33 | Inpatient (IN) ==
[2019-04-19 17:00] LABS: Basophils % 0.3 %; Eosinophils # 0.1 K/mcL (0.0-0.6); Hematocrit 33.8 % (37.5-50.1); Hemoglobin 10.2 g/dL (12.9-16.9); Immature Granulocytes % 0.3 % (0-4); Lymphocytes # 0.9 K/mcL (0.6-4.6); Lymphocytes % 15.5 %; Mean Corpuscular HGB Conc 30.2 g/dL (31.6-35.5); Mean Corpuscular Hemoglobin 24.4 pg (28.0-33.3); Mean Corpuscular Volume 80.9 fL (83.0-100.0); Mean Platelet Volume 9.2 fL (9.4-12.4); Monocytes # 0.5 K/mcL (0.0-1.3); Monocytes % 8.8 %; Neutrophils # 4.3 K/mcL (1.6-8.9); Platelet Count 210 K/mcL (140-400); Red Blood Count 4.18 M/mcL (4.19-5.50); Red Cell Distribution Width 16.9 % (11.5-14.5); Segmented Neutrophils % 73.1 %; White Blood Count 5.9 K/mcL (4.3-11.1)
[2019-04-19 17:05] LABS: Bilirubin,Urine Negative (Negative); Blood,Urine Negative (Negative); Clarity,Urine Clear (Clear); Color,Urine Yellow (Yellow); Glucose,Urine (UA) Normal (Normal); Ketones,Urine Negative (Negative); Leukocyte Esterase,Urine Negative (Negative); Nitrite,Urine Negative (Negative); Protein,Urine Trace mg/dL (Neg-Trace); Specific Gravity,Urine 1.012 (1.010-1.025); Urobilinogen,Urine Normal (Normal)
[2019-04-19] MEDS ORDERED: Ipratropium/Albuterol Neb 3 ML IH ONE (17:14)
[2019-04-19 17:51] LABS: Alanine Aminotransferase < 3 Units/L (7-52); Albumin 3.4 g/dL (3.5-5.7); Alkaline Phosphatase 64 Units/L (34-104); Aspartate Amino Transferase 10 Units/L (13-39); BUN/Creatinine Ratio 16 (6-26); Bilirubin,Direct 0.2 mg/dL (0.0-0.2); Bilirubin,Indirect 0.4 mg/dL (0.0-1.0); Bilirubin,Total 0.6 mg/dL (0.3-1.0); Blood Urea Nitrogen 10 mg/dL (8-23); Calcium 9.1 mg/dL (8.6-10.3); Carbon Dioxide 35 mEq/L (23-29); Chloride 86 mEq/L (98-107); Globulin 3.3 g/dL (2.4-3.5); Glucose 119 mg/dL (70-105); Lipase 12 Units/L (11-82); Magnesium 1.9 mg/dL (1.6-2.6); Osmolality,Calculated 272 (280-300); Phosphorous 4.1 mg/dL (2.7-4.5); Potassium 4.2 mEq/L (3.5-5.1); Sodium 131 mEq/L (136-145); Total Protein 6.7 g/dL (6.4-8.9); Troponin I < 0.03 ng/mL (< 0.04); eGFR For African Americans > 60 (> 60); eGFR For Non-African Americans > 60 (> 60)
[2019-04-19] MEDS ORDERED: Furosemide 60 MG in 0.9 % Sodium Chloride 50 ML IV ONE (18:14)
[2019-04-19 20:32] LABS: ABG Base Excess 14 mEq/L (-2 to 3); ABG HCO3 44 mEq/L (21-27); ABG Oxygen Saturation 92 % (95-98); ABG PCO2 86 mmHg (35-45); ABG PH 7.31 pH Units (7.32-7.45); ABG PO2 75 mmHg (85-104); ABG TCO2 47 mEq/L (20-26)
[2019-04-19] MEDS ORDERED: *HR* Dextrose 50 % in Water (Syg) 50 ML SYRINGE IVP PRN ×2 (23:04→23:11)
[2019-04-19] MEDS ORDERED: D5% in Water 1,000 ML IVC PRN ×2 (23:04→23:11)
[2019-04-19] MEDS ORDERED: Naloxone 0.4 MG/ML INJ IVP PRN (23:04)
[2019-04-19] MEDS ORDERED: Dextrose Gel 15 GM/37.5 ML TUBE PO PRN ×4 (23:04→23:11)
[2019-04-19] MEDS ORDERED: Albuterol 2.5 MG/3 ML NEBULIZER IH PRN (23:04)
[2019-04-20] MEDS: Insulin LISPRO 300 UNITS/3 ML VIAL SQ SCH ×4 (00:28→16:54)
[2019-04-20] MEDS: Ipratropium/Albuterol Neb 3 ML IH SCH ×4 (03:39→21:48)
[2019-04-20 04:15] LABS: ABG Base Excess 16 mEq/L (-2 to 3); ABG HCO3 44 mEq/L (21-27); ABG Oxygen Saturation 92 % (95-98); ABG PCO2 72 mmHg (35-45); ABG PH 7.39 pH Units (7.32-7.45); ABG PO2 69 mmHg (85-104); ABG TCO2 46 mEq/L (20-26)
[2019-04-20 05:51] LABS: Immature Reticulocyte % 34.4 % (11.0-38.0); Retculocyte # 0.11 M/mcL (0.05-0.10); Reticulocyte % 2.8 % (1.6-2.8)
[2019-04-20 05:52] LABS: Basophils % 0.3 %; Eosinophils % 1.8 %
[2019-04-20 05:53] LABS: Eosinophils # 0.1 K/mcL (0.0-0.6); Hematocrit 33.3 % (37.5-50.1); Hemoglobin 10.1 g/dL (12.9-16.9); Immature Granulocytes % 0.3 % (0-4); Lymphocytes # 0.6 K/mcL (0.6-4.6); Lymphocytes % 8.8 %; Mean Corpuscular HGB Conc 30.3 g/dL (31.6-35.5); Mean Corpuscular Hemoglobin 24.2 pg (28.0-33.3); Mean Corpuscular Volume 79.9 fL (83.0-100.0); Monocytes # 0.5 K/mcL (0.0-1.3); Monocytes % 7.9 %; Neutrophils # 5.3 K/mcL (1.6-8.9); Platelet Count 206 K/mcL (140-400); Red Blood Count 4.17 M/mcL (4.19-5.50); Segmented Neutrophils % 80.9 %; White Blood Count 6.6 K/mcL (4.3-11.1)
[2019-04-20 05:55] LABS: INR 1.4
[2019-04-20 06:08] LABS: Alanine Aminotransferase 6 Units/L (7-52); Albumin 3.2 g/dL (3.5-5.7); Alkaline Phosphatase 60 Units/L (34-104); Aspartate Amino Transferase 9 Units/L (13-39); BUN/Creatinine Ratio 16 (6-26); Bilirubin,Total 0.7 mg/dL (0.3-1.0); Blood Urea Nitrogen 10 mg/dL (8-23); Carbon Dioxide 39 mEq/L (23-29); Chloride 89 mEq/L (98-107); Chol/HDL Ratio 2.8 (0-4.9); Cholesterol 70 mg/dL (< 200); Globulin 3.1 g/dL (2.4-3.5); Glucose 85 mg/dL (70-105); HDL Cholesterol 25 mg/dL (40-59); LDL Cholesterol,Calculated 28 mg/dL (0-99); Magnesium 1.9 mg/dL (1.6-2.6); Osmolality,Calculated 278 (280-300); Phosphorous 4.4 mg/dL (2.7-4.5); Potassium 3.7 mEq/L (3.5-5.1); Sodium 135 mEq/L (136-145); Total Protein 6.3 g/dL (6.4-8.9); Triglycerides 84 mg/dL (< 150); eGFR For African Americans > 60 (> 60); eGFR For Non-African Americans > 60 (> 60)
[2019-04-20] MEDS: Furosemide 40 MG/4 ML VIAL IVP SCH ×2 (06:10→16:54)
[2019-04-20 06:20] LABS: Hypochromasia Present (Not Present); Platelet Estimate Normal (Normal)
[2019-04-20 06:24] LABS: Thyroid Stimulating Hormone 1.745 mcIU/mL (0.340-5.600)
[2019-04-20 08:00] LABS: Estimated Average Glucose 151 mg/dl
[2019-04-20] MEDS ORDERED: *HR* Metoprolol 5 MG/5 ML VIAL IVP ONE (08:09)
[2019-04-20] MEDS: *HR* Rivaroxaban 10 MG TABLET PO SCH (08:29)
[2019-04-20] MEDS ORDERED: Budesonide/Formoterol 160/4.5 1 PUFF INH IH PRN (15:39)
[2019-04-20 16:11] LABS: ABG Base Excess 19 mEq/L (-2 to 3); ABG HCO3 45 mEq/L (21-27); ABG Oxygen Saturation 93 % (95-98); ABG PCO2 60 mmHg (35-45); ABG PH 7.48 pH Units (7.32-7.45); ABG PO2 66 mmHg (85-104); ABG TCO2 47 mEq/L (20-26)
[2019-04-20] MEDS: MethylPREDNISolone 40 MG/ML VIAL IVP SCH ×2 (16:53→23:06)
[2019-04-20] MEDS: Carbidopa/Levodopa 25/100 TABLET PO SCH (20:16)
[2019-04-20] MEDS: risperiDONE 1 MG TABLET PO SCH (20:16)
[2019-04-20] MEDS: diazePAM 5 MG TABLET PO SCH (20:16)
[2019-04-21 02:22] LABS: Basophils % 0.2 %; Hematocrit 35.5 % (37.5-50.1); Hemoglobin 10.4 g/dL (12.9-16.9); Immature Granulocytes % 0.5 % (0-4); Lymphocytes # 0.4 K/mcL (0.6-4.6); Lymphocytes % 5.8 %; Mean Corpuscular HGB Conc 29.3 g/dL (31.6-35.5); Mean Corpuscular Hemoglobin 23.5 pg (28.0-33.3); Mean Corpuscular Volume 80.3 fL (83.0-100.0); Mean Platelet Volume 8.9 fL (9.4-12.4); Monocytes # 0.2 K/mcL (0.0-1.3); Monocytes % 2.3 %; Neutrophils # 5.9 K/mcL (1.6-8.9); Platelet Count 225 K/mcL (140-400); Red Blood Count 4.42 M/mcL (4.19-5.50); Red Cell Distribution Width 17.2 % (11.5-14.5); Segmented Neutrophils % 91.2 %; White Blood Count 6.5 K/mcL (4.3-11.1)
[2019-04-21 02:42] LABS: BUN/Creatinine Ratio 18 (6-26); Blood Urea Nitrogen 13 mg/dL (8-23); Calcium 8.9 mg/dL (8.6-10.3); Carbon Dioxide 35 mEq/L (23-29); Chloride 88 mEq/L (98-107); Glucose 186 mg/dL (70-105); Osmolality,Calculated 281 (280-300); Potassium 3.6 mEq/L (3.5-5.1); Sodium 133 mEq/L (136-145); eGFR For African Americans > 60 (> 60); eGFR For Non-African Americans > 60 (> 60)
[2019-04-21] MEDS: Ipratropium/Albuterol Neb 3 ML IH SCH ×4 (03:57→22:32)
[2019-04-21 05:41] LABS: ABG Base Excess 16 mEq/L (-2 to 3); ABG HCO3 44 mEq/L (21-27); ABG Oxygen Saturation 98 % (95-98); ABG PCO2 72 mmHg (35-45); ABG PO2 115 mmHg (85-104); ABG TCO2 46 mEq/L (20-26); Blood Gas Modality ST; Blood Gas Pressure Support 8 cm H2O
[2019-04-21 06:14] LABS: Albumin 3.5 g/dL (3.5-5.7); Bilirubin,Direct 0.2 mg/dL (0.0-0.2); Bilirubin,Indirect 0.5 mg/dL (0.0-1.0); Bilirubin,Total 0.7 mg/dL (0.3-1.0); Globulin 3.5 g/dL (2.4-3.5)
[2019-04-21] MEDS: Furosemide 40 MG/4 ML VIAL IVP SCH ×2 (08:21→15:54)
[2019-04-21] MEDS: MethylPREDNISolone 40 MG/ML VIAL IVP SCH ×3 (08:21→23:56)
[2019-04-21] MEDS: *HR* Rivaroxaban 10 MG TABLET PO SCH (08:21)
[2019-04-21] MEDS: Cholecalciferol (D-3) 1,000 UNIT (25MCG) TABLET PO SCH (08:22)
[2019-04-21] MEDS: Carbidopa/Levodopa 25/100 TABLET PO SCH ×3 (08:22→19:59)
[2019-04-21] MEDS: Insulin LISPRO 300 UNITS/3 ML VIAL SQ SCH ×4 (08:29→20:02)
[2019-04-21] MEDS: risperiDONE 1 MG TABLET PO SCH ×2 (08:38→19:59)
[2019-04-21] MEDS: Diltiazem CD (24hr) 180 MG CAPSULE PO SCH (11:07)
[2019-04-21] MEDS: diazePAM 5 MG TABLET PO SCH ×2 (11:16→20:00)
[2019-04-21] MEDS ORDERED: Perflutren Lipid Microsphere 1.3 ML in 0.9 % Sodium Chloride 8.7 ML IVP ONE (12:29)
[2019-04-21] MEDS ORDERED: Perflutren Lipid Microsphere 2 ML VIAL ONE (12:32)
[2019-04-21 14:40] LABS: ABG Base Excess 16 mEq/L (-2 to 3); ABG HCO3 41 mEq/L (21-27); ABG Oxygen Saturation 95 % (95-98); ABG PCO2 50 mmHg (35-45); ABG PH 7.52 pH Units (7.32-7.45); ABG PO2 68 mmHg (85-104); ABG TCO2 42 mEq/L (20-26)
[2019-04-22] MEDS: Ipratropium/Albuterol Neb 3 ML IH SCH ×4 (04:24→23:23)
[2019-04-22 05:35] LABS: Basophils % 0.1 %; Hematocrit 32.9 % (37.5-50.1); Hemoglobin 10.1 g/dL (12.9-16.9); Immature Granulocytes % 0.7 % (0-4); Lymphocytes # 0.5 K/mcL (0.6-4.6); Lymphocytes % 6.3 %; Mean Corpuscular HGB Conc 30.7 g/dL (31.6-35.5); Mean Corpuscular Hemoglobin 23.7 pg (28.0-33.3); Mean Corpuscular Volume 77.2 fL (83.0-100.0); Monocytes # 0.3 K/mcL (0.0-1.3); Monocytes % 4.3 %; Neutrophils # 6.8 K/mcL (1.6-8.9); Platelet Count 237 K/mcL (140-400); Red Blood Count 4.26 M/mcL (4.19-5.50); Red Cell Distribution Width 17.5 % (11.5-14.5); Segmented Neutrophils % 88.6 %; White Blood Count 7.6 K/mcL (4.3-11.1)
[2019-04-22 05:43] LABS: BUN/Creatinine Ratio 32 (6-26); Blood Urea Nitrogen 22 mg/dL (8-23); Calcium 8.9 mg/dL (8.6-10.3); Carbon Dioxide 35 mEq/L (23-29); Chloride 91 mEq/L (98-107); Glucose 211 mg/dL (70-105); Osmolality,Calculated 288 (280-300); Potassium 3.3 mEq/L (3.5-5.1); Sodium 134 mEq/L (136-145); eGFR For African Americans > 60 (> 60); eGFR For Non-African Americans > 60 (> 60)
[2019-04-22] MEDS: Furosemide 40 MG/4 ML VIAL IVP SCH (07:56)
[2019-04-22] MEDS: Insulin LISPRO 300 UNITS/3 ML VIAL SQ SCH ×4 (07:57→21:55)
[2019-04-22] MEDS: MethylPREDNISolone 40 MG/ML VIAL IVP SCH (07:58)
[2019-04-22] MEDS: Cholecalciferol (D-3) 1,000 UNIT (25MCG) TABLET PO SCH (10:01)
[2019-04-22] MEDS: Diltiazem CD (24hr) 240 MG CAPSULE PO SCH (10:01)
[2019-04-22] MEDS: diazePAM 5 MG TABLET PO SCH ×2 (10:01→21:55)
[2019-04-22] MEDS: *HR* Rivaroxaban 10 MG TABLET PO SCH (10:02)
[2019-04-22] MEDS: risperiDONE 1 MG TABLET PO SCH ×2 (10:02→21:54)
[2019-04-22] MEDS: Carbidopa/Levodopa 25/100 TABLET PO SCH ×3 (10:02→21:54)
[2019-04-22] MEDS: Diltiazem CD (24hr) 180 MG CAPSULE PO SCH (12:04)
[2019-04-22] MEDS: predniSONE 20 MG TABLET PO SCH (16:14)
[2019-04-22] MEDS: Furosemide 40 MG TABLET PO SCH (16:14)
[2019-04-23] MEDS: Ipratropium/Albuterol Neb 3 ML IH SCH ×3 (03:49→16:17)
[2019-04-23 05:45] LABS: Eosinophils % 0.1 %; Hematocrit 33.3 % (37.5-50.1); Immature Granulocytes % 0.7 % (0-4); Lymphocytes # 0.5 K/mcL (0.6-4.6); Lymphocytes % 5.6 %; Mean Corpuscular Hemoglobin 23.8 pg (28.0-33.3); Mean Corpuscular Volume 79.3 fL (83.0-100.0); Mean Platelet Volume 8.8 fL (9.4-12.4); Monocytes # 0.6 K/mcL (0.0-1.3); Monocytes % 6.5 %; Neutrophils # 7.4 K/mcL (1.6-8.9); Platelet Count 245 K/mcL (140-400); Red Cell Distribution Width 17.2 % (11.5-14.5); Segmented Neutrophils % 87.1 %; White Blood Count 8.5 K/mcL (4.3-11.1)
[2019-04-23 06:12] LABS: BUN/Creatinine Ratio 36 (6-26); Blood Urea Nitrogen 25 mg/dL (8-23); Calcium 8.7 mg/dL (8.6-10.3); Carbon Dioxide 36 mEq/L (23-29); Chloride 93 mEq/L (98-107); Glucose 201 mg/dL (70-105); Osmolality,Calculated 296 (280-300); Potassium 3.5 mEq/L (3.5-5.1); Sodium 138 mEq/L (136-145); eGFR For African Americans > 60 (> 60); eGFR For Non-African Americans > 60 (> 60)
[2019-04-23] MEDS: diazePAM 5 MG TABLET PO SCH (08:40)
[2019-04-23] MEDS: Cholecalciferol (D-3) 1,000 UNIT (25MCG) TABLET PO SCH (08:40)
[2019-04-23] MEDS: risperiDONE 1 MG TABLET PO SCH (08:40)
[2019-04-23] MEDS: Furosemide 40 MG TABLET PO SCH ×2 (08:40→16:02)
[2019-04-23] MEDS: predniSONE 20 MG TABLET PO SCH (08:41)
[2019-04-23] MEDS: Carbidopa/Levodopa 25/100 TABLET PO SCH ×2 (08:42→16:02)
[2019-04-23] MEDS: Diltiazem CD (24hr) 240 MG CAPSULE PO SCH (08:43)
[2019-04-23] MEDS: Insulin LISPRO 300 UNITS/3 ML VIAL SQ SCH ×3 (08:48→17:22)
[2019-04-23] MEDS ORDERED: 0.9 % Sodium Chloride 2,000 ML ONE (12:36)
[2019-04-23] MEDS ORDERED: ISOVUE-370 200 ML INFUS..BTL ONE (12:36)
[2019-04-23] MEDS ORDERED: *HR* Heparin 10,000 UNIT/10 ML VIAL ONE (12:36)
[2019-04-23] MEDS ORDERED: Heparin 1,000 UNITS/500 mL 500 ML ONE (12:36)
[2019-04-23] MEDS ORDERED: Nitroglycerin 1,000 MCG/10 ML VIAL IV ONE (12:37)
[2019-04-23] MEDS ORDERED: *HR* Midazolam HCl 2 MG/2 ML VIAL ONE (13:10)
[2019-04-23] MEDS ORDERED: *HR* FentaNYL (PF) 100 MCG/2 ML VIAL ONE (13:10)
[2019-04-23] MEDS ORDERED: Nitroglycerin Spray 4.9 GM BOTTLE ONE (14:20)
[2019-04-23 19:09] VITALS: BP 118/78
== END 2019-04-23 19:24 | disposition home health service (06) | DRG 286 ==
LOC: 3BNU 16:33 → EMEROOARM 16:33 → SUATTDRO 20:41 → 2ANU 21:00
PROVIDERS: ADMIT Internal Medicine; ATTEND Family Medicine

== ENCOUNTER 2019-05-02 14:47 | Inpatient (IN) ==
[2019-05-02] MEDS ORDERED: 0.9 % Sodium Chloride 1,000 ML IVC ONE (14:52)
[2019-05-02 15:25] LABS: Bilirubin,Urine Negative (Negative); Blood,Urine Small (Negative); Clarity,Urine Cloudy (Clear); Color,Urine Yellow (Yellow); Glucose,Urine (UA) Normal (Normal); Ketones,Urine Negative (Negative); Leukocyte Esterase,Urine Trace (Negative); Nitrite,Urine Negative (Negative); Protein,Urine Negative (Neg-Trace); Specific Gravity,Urine 1.011 (1.010-1.025); Urobilinogen,Urine Normal (Normal)
[2019-05-02 15:28] LABS: Bacteria,Urine None Seen per hpf (None-Few); Hyaline Casts,Urine None Seen per lpf (None-Few); RBC,Urine 0-3 per hpf (0-3); Squamous Epithelial Cell,Urine Many per lpf (None-Few)
[2019-05-02 15:36] LABS: Basophils % 0.2 %; Eosinophils # 0.1 K/mcL (0.0-0.6); Eosinophils % 2.1 %; Hematocrit 35.3 % (37.5-50.1); Hemoglobin 10.4 g/dL (12.9-16.9); Immature Granulocytes % 0.5 % (0-4); Lymphocytes # 0.7 K/mcL (0.6-4.6); Lymphocytes % 10.9 %; Mean Corpuscular HGB Conc 29.5 g/dL (31.6-35.5); Mean Corpuscular Hemoglobin 23.4 pg (28.0-33.3); Mean Corpuscular Volume 79.3 fL (83.0-100.0); Mean Platelet Volume 9.1 fL (9.4-12.4); Monocytes # 0.3 K/mcL (0.0-1.3); Monocytes % 4.7 %; Neutrophils # 5.3 K/mcL (1.6-8.9); Platelet Count 197 K/mcL (140-400); Red Blood Count 4.45 M/mcL (4.19-5.50); Red Cell Distribution Width 17.5 % (11.5-14.5); Segmented Neutrophils % 81.6 %; White Blood Count 6.5 K/mcL (4.3-11.1)
[2019-05-02 15:44] LABS: Calcium Oxalate Crystals,Urine Present
[2019-05-02 15:46] LABS: BUN/Creatinine Ratio 14 (6-26); Blood Urea Nitrogen 12 mg/dL (8-23); Calcium 8.9 mg/dL (8.6-10.3); Carbon Dioxide 29 mEq/L (23-29); Chloride 95 mEq/L (98-107); Glucose 142 mg/dL (70-105); Magnesium 1.8 mg/dL (1.6-2.6); Osmolality,Calculated 282 (280-300); Phosphorous 3.8 mg/dL (2.7-4.5); Potassium 3.6 mEq/L (3.5-5.1); Sodium 135 mEq/L (136-145); eGFR For African Americans > 60 (> 60); eGFR For Non-African Americans > 60 (> 60)
[2019-05-02] MEDS ORDERED: Nitroglycerin 0.4 MG TAB.SUBL SL PRN (17:28)
[2019-05-02] MEDS ORDERED: Budesonide/Formoterol 160/4.5 1 PUFF INH IH PRN (17:28)
[2019-05-02] MEDS ORDERED: Naloxone 0.4 MG/ML INJ IVP PRN (17:31)
[2019-05-02] MEDS: Nafcillin 2,000 MG in 0.9 % Sodium Chloride Mini Bag 100 ML IVPB SCH ×3 (18:41→23:39)
[2019-05-02] MEDS: Carbidopa/Levodopa 25/100 TABLET PO SCH (21:02)
[2019-05-02] MEDS: diazePAM 5 MG TABLET PO SCH (21:02)
[2019-05-02] MEDS: *HR* HYDROcodone/Acet 5/325 mg TABLET PO SCH (21:02)
[2019-05-02] MEDS: DROXIDOPA 100 MG PO SCH (21:03)
[2019-05-02] MEDS: risperiDONE 1 MG TABLET PO SCH (21:03)
[2019-05-03] MEDS: Nafcillin 2,000 MG in 0.9 % Sodium Chloride Mini Bag 100 ML IVPB SCH ×5 (03:53→20:58)
[2019-05-03] MEDS: risperiDONE 1 MG TABLET PO SCH ×2 (07:49→21:00)
[2019-05-03] MEDS: *HR* HYDROcodone/Acet 5/325 mg TABLET PO SCH ×3 (07:51→21:00)
[2019-05-03] MEDS: diazePAM 5 MG TABLET PO SCH ×2 (07:52→20:59)
[2019-05-03] MEDS: Carbidopa/Levodopa 25/100 TABLET PO SCH ×3 (07:52→20:59)
[2019-05-03] MEDS: *HR* Rivaroxaban 10 MG TABLET PO SCH (07:52)
[2019-05-03] MEDS: Furosemide 40 MG TABLET PO SCH ×2 (07:54→18:01)
[2019-05-03] MEDS: DROXIDOPA 100 MG PO SCH ×3 (07:57→21:00)
[2019-05-03] MEDS ORDERED: Dextrose Gel 15 GM/37.5 ML TUBE PO PRN ×2 (15:33)
[2019-05-03] MEDS ORDERED: D5% in Water 1,000 ML IVC PRN (15:33)
[2019-05-03] MEDS ORDERED: *HR* Dextrose 50 % in Water (Syg) 50 ML SYRINGE IVP PRN (15:33)
[2019-05-03] MEDS: Insulin LISPRO 300 UNITS/3 ML VIAL SQ SCH ×2 (18:18→21:03)
[2019-05-03] MEDS ORDERED: RISPERIDONE 1 MG PO SCH (21:00)
[2019-05-04] MEDS: Nafcillin 2,000 MG in 0.9 % Sodium Chloride Mini Bag 100 ML IVPB SCH ×6 (04:40→21:21)
[2019-05-04 05:19] LABS: Immature Granulocytes % 0.5 % (0-4)
[2019-05-04 05:21] LABS: Basophils % 0.5 %; Eosinophils # 0.2 K/mcL (0.0-0.6); Eosinophils % 4.3 %; Hematocrit 39.9 % (37.5-50.1); Hemoglobin 11.7 g/dL (12.9-16.9); Lymphocytes # 0.9 K/mcL (0.6-4.6); Lymphocytes % 20.5 %; Mean Corpuscular HGB Conc 29.3 g/dL (31.6-35.5); Mean Corpuscular Hemoglobin 23.4 pg (28.0-33.3); Mean Corpuscular Volume 79.8 fL (83.0-100.0); Mean Platelet Volume 8.8 fL (9.4-12.4); Monocytes # 0.3 K/mcL (0.0-1.3); Monocytes % 6.2 %; Platelet Count 192 K/mcL (140-400); Red Cell Distribution Width 17.8 % (11.5-14.5); White Blood Count 4.4 K/mcL (4.3-11.1)
[2019-05-04 05:36] LABS: BUN/Creatinine Ratio 16 (6-26); Blood Urea Nitrogen 13 mg/dL (8-23); Calcium 9.1 mg/dL (8.6-10.3); Carbon Dioxide 33 mEq/L (23-29); Chloride 95 mEq/L (98-107); Glucose 111 mg/dL (70-105); Osmolality,Calculated 283 (280-300); Potassium 3.6 mEq/L (3.5-5.1); Sodium 136 mEq/L (136-145); eGFR For African Americans > 60 (> 60); eGFR For Non-African Americans > 60 (> 60)
[2019-05-04 05:46] LABS: Anisocytosis 1+ (Not Present); Microcytosis Present (Not Present); Platelet Estimate Normal (Normal); Poikilocytosis 1+ (Not Present); Polychromasia 1+ (Not Present)
[2019-05-04 05:47] LABS: Ovalocytes 1+ (Not Present)
[2019-05-04] MEDS: *HR* HYDROcodone/Acet 5/325 mg TABLET PO SCH (09:15)
[2019-05-04] MEDS: risperiDONE 1 MG TABLET PO SCH ×2 (09:15→21:15)
[2019-05-04] MEDS: diazePAM 5 MG TABLET PO SCH ×2 (09:15→21:15)
[2019-05-04] MEDS: Diltiazem CD (24hr) 240 MG CAPSULE PO SCH (09:15)
[2019-05-04] MEDS: Carbidopa/Levodopa 25/100 TABLET PO SCH ×3 (09:16→21:15)
[2019-05-04] MEDS: *HR* Rivaroxaban 10 MG TABLET PO SCH (09:16)
[2019-05-04] MEDS: Furosemide 40 MG TABLET PO SCH (09:16)
[2019-05-04] MEDS: Insulin LISPRO 300 UNITS/3 ML VIAL SQ SCH ×4 (09:19→21:00)
[2019-05-04] MEDS: DROXIDOPA 100 MG PO SCH ×3 (09:19→21:16)
[2019-05-04 13:43] LABS: Hematocrit 35.1 % (37.5-50.1); Hemoglobin 10.7 g/dL (12.9-16.9)
[2019-05-04] MEDS: Pantoprazole 40 MG VIAL IVP SCH (17:05)
[2019-05-04] MEDS: *HR* HYDROcodone/Acet 5/325 mg TABLET PO PRN (21:15)
[2019-05-04 21:17] LABS: Hematocrit 34.8 % (37.5-50.1); Hemoglobin 10.2 g/dL (12.9-16.9)
[2019-05-05] MEDS: Nafcillin 2,000 MG in 0.9 % Sodium Chloride Mini Bag 100 ML IVPB SCH ×3 (01:33→07:39)
[2019-05-05 05:55] LABS: Hematocrit 35.8 % (37.5-50.1); Hemoglobin 10.6 g/dL (12.9-16.9)
[2019-05-05] MEDS: Pantoprazole 40 MG VIAL IVP SCH (06:39)
[2019-05-05 07:10] VITALS: BP 161/120
[2019-05-05] MEDS: *HR* HYDROcodone/Acet 5/325 mg TABLET PO PRN (07:35)
[2019-05-05] MEDS: diazePAM 5 MG TABLET PO SCH (07:35)
[2019-05-05] MEDS: Diltiazem CD (24hr) 240 MG CAPSULE PO SCH (07:35)
[2019-05-05] MEDS: Carbidopa/Levodopa 25/100 TABLET PO SCH (07:36)
[2019-05-05] MEDS: risperiDONE 1 MG TABLET PO SCH (07:36)
[2019-05-05] MEDS: Insulin LISPRO 300 UNITS/3 ML VIAL SQ SCH ×2 (07:45→11:28)
[2019-05-05] MEDS: DROXIDOPA 100 MG PO SCH (07:47)
[2019-05-05 08:17] LABS: Hematocrit 37.5 % (37.5-50.1); Hemoglobin 11.2 g/dL (12.9-16.9)
== END 2019-05-05 14:04 | disposition home health service (06) | DRG 603 ==
LOC: 3ANU 14:47 → EMEROOARM 14:47 → SUATTDRO 16:32 → 3ANU 17:36 → SUATTDRO 05-04 14:25
PROVIDERS: ADMIT Internal Medicine; ATTEND Family Medicine

== ENCOUNTER 2020-01-07 10:42 | Observation (INO) ==
[2020-01-07 11:18] LABS: Basophils % 0.2 %; Monocytes % 5.5 %; Red Cell Distribution Width 18.6 % (11.5-14.5)
[2020-01-07 11:20] LABS: Eosinophils # 0.1 K/mcL (0.0-0.6); Eosinophils % 1.3 %; Hematocrit 36.8 % (37.5-50.1); Hemoglobin 10.3 g/dL (12.9-16.9); Immature Granulocytes % 0.2 % (0-4); Lymphocytes # 1.3 K/mcL (0.6-4.6); Mean Corpuscular Hemoglobin 21.8 pg (28.0-33.3); Mean Platelet Volume 8.8 fL (9.4-12.4); Monocytes # 0.5 K/mcL (0.0-1.3); Neutrophils # 7.1 K/mcL (1.6-8.9); Platelet Count 266 K/mcL (140-400); Red Blood Count 4.72 M/mcL (4.19-5.50); Segmented Neutrophils % 78.8 %
[2020-01-07 11:39] LABS: Anisocytosis 1+ (Not Present); Platelet Estimate Normal (Normal); Poikilocytosis 1+ (Not Present)
[2020-01-07 11:44] LABS: Alanine Aminotransferase 3 Units/L (7-52); Albumin 3.5 g/dL (3.5-5.7); Albumin/Globulin Ratio 0.8 (1.1-2.2); Alkaline Phosphatase 69 Units/L (34-104); Aspartate Amino Transferase 8 Units/L (13-39); BUN/Creatinine Ratio 18 (6-26); Bilirubin,Total 0.3 mg/dL (0.3-1.0); Blood Urea Nitrogen 10 mg/dL (8-23); Calcium 11.3 mg/dL (8.6-10.3); Carbon Dioxide 37 mEq/L (23-29); Chloride 94 mEq/L (98-107); Globulin 4.3 g/dL (2.4-3.5); Glucose 123 mg/dL (70-105); Osmolality,Calculated 282 (280-300); Potassium 4.1 mEq/L (3.5-5.1); Sodium 136 mEq/L (136-145); Total Protein 7.8 g/dL (6.4-8.9); Troponin I < 0.03 ng/mL (< 0.04); eGFR For African Americans > 60 (> 60); eGFR For Non-African Americans > 60 (> 60)
[2020-01-07] MEDS ORDERED: Furosemide 40 MG/4 ML VIAL IVP ONE (11:53)
[2020-01-07] MEDS ORDERED: Naloxone 0.4 MG/ML INJ IVP PRN (12:11)
[2020-01-07] MEDS ORDERED: Dextrose Gel 15 GM/37.5 ML TUBE PO PRN ×2 (12:13)
[2020-01-07] MEDS ORDERED: D5% in Water 1,000 ML IVC PRN (12:13)
[2020-01-07] MEDS ORDERED: *HR* Dextrose 50 % in Water (Vial) 50 ML VIAL IVP PRN (12:13)
[2020-01-07] MEDS ORDERED: Budesonide/Formoterol 160/4.5 1 PUFF INH IH PRN (12:17)
[2020-01-07] MEDS: Carbidopa/Levodopa 25/100 TABLET PO SCH ×2 (13:50→21:03)
[2020-01-07 15:21] LABS: ABG Base Excess 11 mEq/L (-2 to 3); ABG HCO3 37 mEq/L (21-27); ABG Oxygen Saturation 98 % (95-98); ABG PCO2 60 mmHg (35-45); ABG PH 7.41 pH Units (7.32-7.45); ABG PO2 101 mmHg (85-104); ABG TCO2 39 mEq/L (20-26)
[2020-01-07 17:04] LABS: Amylase,Pleural Fluid 19 Units/L (No Ref Range); Glucose,Pleural Fluid 120 mg/dL (No Ref Range); LDH,Pleural Fluid 127 Units/L (No Ref Range); RBC,Pleural Fluid < 2000 RBC/mcL
[2020-01-07] MEDS: Insulin LISPRO 300 UNITS/3 ML VIAL SQ SCH (17:24)
[2020-01-07 18:03] LABS: Appearance of Pleural Fl Cloudy (Clear); Basophils,Pleural Fluid 0 %; Eosinophils,Pleural Fluid 0 %; Monocytes,Pleural Fluid 0 %
[2020-01-07] MEDS: Ampicillin/Sulbactam 1,500 MG in 0.9 % Sodium Chloride Mini Bag 100 ML IVPB SCH (18:40)
[2020-01-07] MEDS: risperiDONE 1 MG TABLET PO SCH (21:02)
[2020-01-07] MEDS: *HR* HYDROcodone/Acet 5/325 mg TABLET PO PRN (21:02)
[2020-01-07] MEDS: Insulin DETEMIR 100 UNIT/ML X5UNITS SQ SCH (21:03)
[2020-01-07] MEDS: Furosemide 40 MG/4 ML VIAL IVP SCH (21:03)
[2020-01-07] MEDS: Acetaminophen 325 MG TABLET PO SCH (21:05)
[2020-01-07 23:38] LABS: Bilirubin,Urine Negative (Negative); Blood,Urine Negative (Negative); Clarity,Urine Clear (Clear); Color,Urine Light-Yellow (Yellow); Glucose,Urine (UA) Normal (Normal); Ketones,Urine Negative (Negative); Leukocyte Esterase,Urine Negative (Negative); Nitrite,Urine Negative (Negative); Protein,Urine Negative (Neg-Trace); Specific Gravity,Urine 1.011 (1.010-1.025); Urobilinogen,Urine Normal (Normal)
[2020-01-08] MEDS: Ampicillin/Sulbactam 1,500 MG in 0.9 % Sodium Chloride Mini Bag 100 ML IVPB SCH ×4 (00:15→18:00)
[2020-01-08 06:19] LABS: Basophils % 0.2 %; Eosinophils # 0.1 K/mcL (0.0-0.6); Eosinophils % 1.1 %; Hematocrit 35.8 % (37.5-50.1); Hemoglobin 10.2 g/dL (12.9-16.9); Immature Granulocytes % 0.6 % (0-4); Lymphocytes % 11.9 %; Mean Corpuscular HGB Conc 28.5 g/dL (31.6-35.5); Mean Corpuscular Hemoglobin 21.9 pg (28.0-33.3); Mean Platelet Volume 8.9 fL (9.4-12.4); Monocytes # 0.5 K/mcL (0.0-1.3); Monocytes % 6.3 %; Neutrophils # 6.6 K/mcL (1.6-8.9); Platelet Count 239 K/mcL (140-400); Red Blood Count 4.65 M/mcL (4.19-5.50); Red Cell Distribution Width 18.5 % (11.5-14.5); Segmented Neutrophils % 79.9 %; White Blood Count 8.3 K/mcL (4.3-11.1)
[2020-01-08 06:23] LABS: INR 1.4; Prothrombin Time 16.2 Seconds (9.4-12.1)
[2020-01-08 06:38] LABS: BUN/Creatinine Ratio 18 (6-26); Blood Urea Nitrogen 10 mg/dL (8-23); Carbon Dioxide 35 mEq/L (23-29); Chloride 94 mEq/L (98-107); Glucose 124 mg/dL (70-105); Magnesium 1.9 mg/dL (1.6-2.6); Osmolality,Calculated 280 (280-300); Phosphorous 3.4 mg/dL (2.7-4.5); Potassium 3.6 mEq/L (3.5-5.1); Sodium 135 mEq/L (136-145); eGFR For African Americans > 60 (> 60); eGFR For Non-African Americans > 60 (> 60)
[2020-01-08 06:47] LABS: Anisocytosis 1+ (Not Present); Hypochromasia Present (Not Present); Poikilocytosis 1+ (Not Present)
[2020-01-08 06:48] LABS: Platelet Estimate Normal (Normal)
[2020-01-08] MEDS: Insulin LISPRO 300 UNITS/3 ML VIAL SQ SCH ×3 (08:08→17:11)
[2020-01-08] MEDS: Furosemide 40 MG/4 ML VIAL IVP SCH (08:48)
[2020-01-08] MEDS: risperiDONE 1 MG TABLET PO SCH ×2 (08:50→20:39)
[2020-01-08] MEDS: Finasteride 5 MG TABLET PO SCH (08:50)
[2020-01-08] MEDS: Carbidopa/Levodopa 25/100 TABLET PO SCH ×3 (08:50→20:39)
[2020-01-08] MEDS: Cholecalciferol (D-3) 1,000 UNIT (25MCG) TABLET PO SCH (08:50)
[2020-01-08] MEDS: DilTIAZem CD (24hr) 120 MG CAP.ER.24H PO SCH (08:50)
[2020-01-08] MEDS ORDERED: *HR* Rivaroxaban 10 MG TABLET PO SCH (09:00)
[2020-01-08] MEDS: Insulin DETEMIR 100 UNIT/ML X5UNITS SQ SCH ×2 (10:38→20:39)
[2020-01-08] MEDS: *HR* HYDROcodone/Acet 5/325 mg TABLET PO PRN ×2 (12:17→17:59)
[2020-01-08] MEDS: Acetaminophen 325 MG TABLET PO SCH (20:38)
[2020-01-08] MEDS: diazePAM 5 MG TABLET PO SCH (20:39)
[2020-01-09] MEDS: Ampicillin/Sulbactam 1,500 MG in 0.9 % Sodium Chloride Mini Bag 100 ML IVPB SCH ×4 (00:20→17:48)
[2020-01-09] MEDS: *HR* HYDROcodone/Acet 5/325 mg TABLET PO PRN ×2 (00:22→12:23)
[2020-01-09 07:31] LABS: Basophils % 0.2 %; Mean Platelet Volume 9.4 fL (9.4-12.4)
[2020-01-09 07:33] LABS: Eosinophils # 0.1 K/mcL (0.0-0.6); Eosinophils % 1.6 %; Hematocrit 39.2 % (37.5-50.1); Hemoglobin 10.8 g/dL (12.9-16.9); Immature Granulocytes % 0.4 % (0-4); Lymphocytes # 0.5 K/mcL (0.6-4.6); Lymphocytes % 9.9 %; Mean Corpuscular HGB Conc 27.6 g/dL (31.6-35.5); Mean Corpuscular Volume 79.8 fL (83.0-100.0); Monocytes # 0.3 K/mcL (0.0-1.3); Monocytes % 5.8 %; Neutrophils # 4.5 K/mcL (1.6-8.9); Platelet Count 191 K/mcL (140-400); Red Blood Count 4.91 M/mcL (4.19-5.50); Red Cell Distribution Width 18.7 % (11.5-14.5); Segmented Neutrophils % 82.1 %; White Blood Count 5.5 K/mcL (4.3-11.1)
[2020-01-09 07:48] LABS: Platelet Estimate Normal (Normal)
[2020-01-09 07:49] LABS: Hypochromasia Present (Not Present)
[2020-01-09 07:52] LABS: BUN/Creatinine Ratio 26 (6-26); Blood Urea Nitrogen 14 mg/dL (8-23); Calcium 10.8 mg/dL (8.6-10.3); Carbon Dioxide 33 mEq/L (23-29); Chloride 94 mEq/L (98-107); Glucose 141 mg/dL (70-105); Magnesium 1.9 mg/dL (1.6-2.6); Osmolality,Calculated 279 (280-300); Sodium 133 mEq/L (136-145); eGFR For African Americans > 60 (> 60); eGFR For Non-African Americans > 60 (> 60)
[2020-01-09] MEDS: diazePAM 5 MG TABLET PO SCH ×2 (08:27→21:18)
[2020-01-09] MEDS: Finasteride 5 MG TABLET PO SCH (08:27)
[2020-01-09] MEDS: Cholecalciferol (D-3) 1,000 UNIT (25MCG) TABLET PO SCH (08:27)
[2020-01-09] MEDS: risperiDONE 1 MG TABLET PO SCH ×2 (08:27→21:18)
[2020-01-09] MEDS: DilTIAZem CD (24hr) 120 MG CAP.ER.24H PO SCH (08:27)
[2020-01-09] MEDS: Carbidopa/Levodopa 25/100 TABLET PO SCH ×3 (08:27→21:18)
[2020-01-09] MEDS: Insulin LISPRO 300 UNITS/3 ML VIAL SQ SCH ×3 (08:28→17:12)
[2020-01-09] MEDS ORDERED: Furosemide 40 MG/4 ML VIAL IVP SCH (09:00)
[2020-01-09] MEDS: Insulin DETEMIR 100 UNIT/ML X5UNITS SQ SCH ×2 (10:05→21:19)
[2020-01-09] MEDS: Furosemide 20 MG TABLET PO SCH (17:11)
[2020-01-09] MEDS: Budesonide/Formoterol 160/4.5 1 PUFF INH IH SCH (20:01)
[2020-01-09] MEDS: Acetaminophen 325 MG TABLET PO SCH (21:18)
[2020-01-09] MEDS: Nystatin Cream 15 GM TUBE TP SCH (21:19)
[2020-01-10] MEDS: *HR* HYDROcodone/Acet 5/325 mg TABLET PO PRN ×3 (00:24→16:26)
[2020-01-10] MEDS: Ampicillin/Sulbactam 1,500 MG in 0.9 % Sodium Chloride Mini Bag 100 ML IVPB SCH ×2 (00:26→05:45)
[2020-01-10 02:36] LABS: Basophils % 0.3 %; Mean Platelet Volume 8.7 fL (9.4-12.4)
[2020-01-10 02:37] LABS: Eosinophils # 0.2 K/mcL (0.0-0.6); Eosinophils % 2.1 %; Hematocrit 32.4 % (37.5-50.1); Immature Granulocytes % 0.4 % (0-4); Lymphocytes # 1.2 K/mcL (0.6-4.6); Lymphocytes % 16.5 %; Mean Corpuscular HGB Conc 27.8 g/dL (31.6-35.5); Mean Corpuscular Hemoglobin 21.1 pg (28.0-33.3); Mean Corpuscular Volume 75.9 fL (83.0-100.0); Monocytes # 0.5 K/mcL (0.0-1.3); Monocytes % 6.4 %; Neutrophils # 5.4 K/mcL (1.6-8.9); Platelet Count 233 K/mcL (140-400); Red Blood Count 4.27 M/mcL (4.19-5.50); Red Cell Distribution Width 18.2 % (11.5-14.5); Segmented Neutrophils % 74.3 %; White Blood Count 7.2 K/mcL (4.3-11.1)
[2020-01-10 02:54] LABS: BUN/Creatinine Ratio 30 (6-26); Blood Urea Nitrogen 18 mg/dL (8-23); Calcium 10.3 mg/dL (8.6-10.3); Carbon Dioxide 34 mEq/L (23-29); Chloride 94 mEq/L (98-107); Glucose 131 mg/dL (70-105); Osmolality,Calculated 284 (280-300); Potassium 3.6 mEq/L (3.5-5.1); Sodium 135 mEq/L (136-145); eGFR For African Americans > 60 (> 60); eGFR For Non-African Americans > 60 (> 60)
[2020-01-10 03:14] LABS: Hypochromasia Present (Not Present); Platelet Estimate Normal (Normal)
[2020-01-10] MEDS: Budesonide/Formoterol 160/4.5 1 PUFF INH IH SCH (07:50)
[2020-01-10] MEDS: Insulin LISPRO 300 UNITS/3 ML VIAL SQ SCH ×2 (09:00→12:27)
[2020-01-10] MEDS: risperiDONE 1 MG TABLET PO SCH (09:51)
[2020-01-10] MEDS: DilTIAZem CD (24hr) 120 MG CAP.ER.24H PO SCH (09:51)
[2020-01-10] MEDS: Cholecalciferol (D-3) 1,000 UNIT (25MCG) TABLET PO SCH (09:51)
[2020-01-10] MEDS: Furosemide 20 MG TABLET PO SCH (09:52)
[2020-01-10] MEDS: Carbidopa/Levodopa 25/100 TABLET PO SCH ×2 (09:52→15:07)
[2020-01-10] MEDS: diazePAM 5 MG TABLET PO SCH (09:52)
[2020-01-10] MEDS: Finasteride 5 MG TABLET PO SCH (09:52)
[2020-01-10] MEDS: Nystatin Cream 15 GM TUBE TP SCH (09:52)
[2020-01-10] MEDS: Insulin DETEMIR 100 UNIT/ML X5UNITS SQ SCH (09:53)
[2020-01-10 11:26] VITALS: BP 117/77
[2020-01-10] MEDS ORDERED: Piperacillin/Tazobactam 3.375 GM in 0.9 % Sodium Chloride Mini Bag 100 ML IVPB SCH (12:00)
[2020-01-10 12:13] LABS: Hematocrit 33.1 % (37.5-50.1); Hemoglobin 9.5 g/dL (12.9-16.9)
[2020-01-10 13:13] LABS: INR 1.2; Prothrombin Time 13.4 Seconds (9.4-12.1)
== END 2020-01-10 17:56 | disposition home or self-care (01) ==
LOC: 2ANU 10:42 → EMEROOARM 10:42 → SUATTDRO 12:18 → 2ANU 12:41
PROVIDERS: ADMIT Internal Medicine; ATTEND Internal Medicine

== ENCOUNTER 2020-01-14 07:41 | Observation (INO) ==
[2020-01-14] MEDS ORDERED: Ringers Solution, Lactated 1,000 ML IVC SCH (08:45)
[2020-01-14] MEDS ORDERED: *HR* FentaNYL (PF) 100 MCG/2 ML VIAL ONE (08:46)
[2020-01-14] MEDS ORDERED: *HR* Promethazine 25 MG/ML VIAL IVP PRN (08:47)
[2020-01-14] MEDS ORDERED: Ondansetron 4 MG/2 ML VIAL ONE (08:47)
[2020-01-14] MEDS ORDERED: *HR* HYDROmorphone PF 0.5 MG/0.5 ML SYRINGE IVP PRN (08:47)
[2020-01-14] MEDS ORDERED: Ondansetron 4 MG/2 ML VIAL IVP ONE (08:47)
[2020-01-14] MEDS ORDERED: *HR* OxyCODONE Immed Rel 5 MG TABLET PO PRN (08:47)
[2020-01-14] MEDS ORDERED: Dexamethasone 4 MG/ML VIAL ONE (08:47)
[2020-01-14] MEDS ORDERED: Lidocaine -MPF 4% 5 ML AMPUL ONE (08:47)
[2020-01-14] MEDS ORDERED: *HR* PHENYLEPHRINE 1,000 MCG/10 ML SYRINGE IVP ONE (09:21)
[2020-01-14] MEDS ORDERED: *HR* EPINEPHrine 1 MG/10 ML SYRINGE INTRATRACH PRN (09:47)
[2020-01-14] MEDS ORDERED: *HR* EPINEPHrine 1 MG/10 ML SYRINGE ONE (09:53)
[2020-01-14] MEDS: DilTIAZem CD (24hr) 120 MG CAP.ER.24H PO SCH (11:37)
[2020-01-14 14:33] LABS: Source of Body Fluid RLL BAL
[2020-01-14] MEDS ORDERED: Naloxone 0.4 MG/ML INJ IVP PRN (14:44)
[2020-01-14] MEDS ORDERED: *HR* Heparin 5,000 UNIT/ML VIAL IVP ONE (14:48)
[2020-01-14] MEDS ORDERED: *HR* Heparin 5,000 UNIT/ML VIAL IVP PRN ×2 (14:48)
[2020-01-14] MEDS ORDERED: Heparin 25,000 UNIT/250 ML D5W 25,000 UNIT/250 ML IV.SOLN IVC SCH ×2 (15:00→16:30)
[2020-01-14] MEDS ORDERED: D5% in Water 1,000 ML IVC PRN (15:07)
[2020-01-14] MEDS ORDERED: *HR* Dextrose 50 % in Water (Vial) 50 ML VIAL IVP PRN (15:07)
[2020-01-14] MEDS ORDERED: Dextrose Gel 15 GM/37.5 ML TUBE PO PRN ×2 (15:07)
[2020-01-14 15:36] LABS: Basophils % 0.1 %; Red Cell Distribution Width 18.4 % (11.5-14.5)
[2020-01-14 15:37] LABS: Hematocrit 33.9 % (37.5-50.1); Hemoglobin 9.6 g/dL (12.9-16.9); Immature Granulocytes % 0.3 % (0-4); Lymphocytes # 0.3 K/mcL (0.6-4.6); Lymphocytes % 4.9 %; Mean Corpuscular HGB Conc 28.3 g/dL (31.6-35.5); Mean Corpuscular Hemoglobin 21.9 pg (28.0-33.3); Mean Corpuscular Volume 77.4 fL (83.0-100.0); Mean Platelet Volume 9.2 fL (9.4-12.4); Monocytes # 0.1 K/mcL (0.0-1.3); Monocytes % 1.4 %; Neutrophils # 6.5 K/mcL (1.6-8.9); Platelet Count 255 K/mcL (140-400); Red Blood Count 4.38 M/mcL (4.19-5.50); Segmented Neutrophils % 93.3 %
[2020-01-14] MEDS: DilTIAZem 50 MG/50 ML IV.SOLN IVC SCH ×2 (15:40→22:30)
[2020-01-14] MEDS ORDERED: Budesonide/Formoterol 160/4.5 1 PUFF INH IH PRN (15:40)
[2020-01-14 15:53] LABS: INR 1.1; Prothrombin Time 12.9 Seconds (9.4-12.1)
[2020-01-14 15:54] LABS: Activated Partial Thrombo Time 38.9 Seconds (26.0-36.0); Hypochromasia Present (Not Present)
[2020-01-14 15:58] LABS: Appearance of Body Fluid Hazy (Clear); Volume of Body Fluid 16 mL
[2020-01-14] MEDS: Insulin LISPRO 300 UNITS/3 ML VIAL SQ SCH (15:59)
[2020-01-14 16:04] LABS: Alanine Aminotransferase 6 Units/L (7-52); Albumin 3.2 g/dL (3.5-5.7); Albumin/Globulin Ratio 0.8 (1.1-2.2); Alkaline Phosphatase 64 Units/L (34-104); Aspartate Amino Transferase 9 Units/L (13-39); BUN/Creatinine Ratio 18 (6-26); Bilirubin,Total 0.3 mg/dL (0.3-1.0); Blood Urea Nitrogen 10 mg/dL (8-23); Calcium 10.7 mg/dL (8.6-10.3); Carbon Dioxide 32 mEq/L (23-29); Chloride 97 mEq/L (98-107); Glucose 191 mg/dL (70-105); Magnesium 1.9 mg/dL (1.6-2.6); Osmolality,Calculated 282 (280-300); Potassium 4.4 mEq/L (3.5-5.1); Sodium 134 mEq/L (136-145); Total Protein 7.2 g/dL (6.4-8.9); Troponin I < 0.03 ng/mL (< 0.04); eGFR For African Americans > 60 (> 60); eGFR For Non-African Americans > 60 (> 60)
[2020-01-14] MEDS: Furosemide 20 MG TABLET PO SCH (16:40)
[2020-01-14] MEDS: *HR* HYDROcodone/Acet 5/325 mg TABLET PO PRN (18:45)
[2020-01-14] MEDS: Carbidopa/Levodopa 25/100 TABLET PO SCH (20:11)
[2020-01-14] MEDS: risperiDONE 1 MG TABLET PO SCH (20:11)
[2020-01-14] MEDS: Doxycycline 100 MG CAPSULE PO SCH (20:11)
[2020-01-14] MEDS: diazePAM 5 MG TABLET PO SCH (20:11)
[2020-01-14] MEDS ORDERED: Insulin LISPRO 300 UNITS/3 ML VIAL SQ SCH (21:00)
[2020-01-14] MEDS: Heparin 25,000 UNIT/250 ML D5W 25,000 UNIT/250 ML IV.SOLN IVC SCH (23:30)
[2020-01-15] MEDS: *HR* HYDROcodone/Acet 5/325 mg TABLET PO PRN ×2 (01:30→08:58)
[2020-01-15] MEDS: Heparin 25,000 UNIT/250 ML D5W 25,000 UNIT/250 ML IV.SOLN IVC SCH (05:53)
[2020-01-15 08:41] LABS: Basophils % 0.2 %; Eosinophils % 0.2 %; Monocytes % 7.5 %
[2020-01-15 08:43] LABS: Hematocrit 32.8 % (37.5-50.1); Immature Granulocytes % 0.5 % (0-4); Lymphocytes # 0.8 K/mcL (0.6-4.6); Lymphocytes % 12.9 %; Mean Corpuscular HGB Conc 27.4 g/dL (31.6-35.5); Mean Corpuscular Hemoglobin 21.3 pg (28.0-33.3); Mean Corpuscular Volume 77.5 fL (83.0-100.0); Mean Platelet Volume 9.1 fL (9.4-12.4); Monocytes # 0.5 K/mcL (0.0-1.3); Platelet Count 252 K/mcL (140-400); Red Blood Count 4.23 M/mcL (4.19-5.50); Red Cell Distribution Width 18.4 % (11.5-14.5); Segmented Neutrophils % 78.7 %; White Blood Count 6.4 K/mcL (4.3-11.1)
[2020-01-15] MEDS: diazePAM 5 MG TABLET PO SCH (08:54)
[2020-01-15] MEDS: DilTIAZem CD (24hr) 120 MG CAP.ER.24H PO SCH (08:54)
[2020-01-15] MEDS: Doxycycline 100 MG CAPSULE PO SCH (08:54)
[2020-01-15] MEDS: risperiDONE 1 MG TABLET PO SCH (08:55)
[2020-01-15] MEDS: Carbidopa/Levodopa 25/100 TABLET PO SCH (08:55)
[2020-01-15] MEDS: Furosemide 20 MG TABLET PO SCH (08:55)
[2020-01-15 09:00] LABS: BUN/Creatinine Ratio 24 (6-26); Blood Urea Nitrogen 12 mg/dL (8-23); Calcium 10.9 mg/dL (8.6-10.3); Carbon Dioxide 36 mEq/L (23-29); Chloride 98 mEq/L (98-107); Glucose 123 mg/dL (70-105); Osmolality,Calculated 285 (280-300); Potassium 4.1 mEq/L (3.5-5.1); Sodium 137 mEq/L (136-145); eGFR For African Americans > 60 (> 60); eGFR For Non-African Americans > 60 (> 60)
[2020-01-15] MEDS ORDERED: Cholecalciferol (D-3) 1,000 UNIT (25MCG) TABLET PO SCH (09:00)
[2020-01-15] MEDS ORDERED: Finasteride 5 MG TABLET PO SCH (09:00)
[2020-01-15] MEDS: Insulin LISPRO 300 UNITS/3 ML VIAL SQ SCH ×2 (09:03→12:49)
[2020-01-15 09:07] LABS: Magnesium 1.9 mg/dL (1.6-2.6)
[2020-01-15 10:21] LABS: Anisocytosis 1+ (Not Present); Hypochromasia Present (Not Present); Platelet Estimate Normal (Normal)
[2020-01-15 11:31] VITALS: BP 100/66
== END 2020-01-15 14:10 | disposition home or self-care (01) ==
LOC: 2ANU 07:41 → SAMDAY 07:41 → SUATTDRO 14:33
PROVIDERS: ADMIT Family Medicine; ATTEND Pharmacist